=== PATIENT | female | born 1970 | race Caucasian/White ===

== ENCOUNTER 2024-09-02 07:58 | Outpatient (AMB) | payer BC, SELFPAY ==
--- NOTE | 2024-09-02 07:59 | A.OFFPC_ITS ---
Vital Signs 09/02/24 08:06 Height 5 ft 4 in Weight 187 lb 4 oz BMI 32.1 BP 104/78 Blood Pressure Location Lt brachial Position Sitting Pulse 79 Pulse Source Pulse Oximeter Pulse Oximetry (%) 97 Oxygen Delivery Method Room Air Intake Visit Reasons: establish care Intake Note: New patient visit. Requesting ENT referral for hearing loss left ear. Allergies No Known Allergies Allergy (Verified 09/02/24 08:02) Medication List - Last Reconciled 09/02/24 by DEMIAN Burns-MANNIE ascorbate calcium (vitamin C) 1 g PO Q6H cetirizine (Zyrtec) 10 mg PO DAILY PRN clotrimazole-betamethasone 1-0.05 % appl topical ferrous sulfate 325 mg PO DAILY Tobacco use date assessed: 09/02/24 Dental Screening Dental Screen Date: 09/02/24 Did you have a dental visit in the last 12 months?: Yes Did you have a dental problem in the last 6 months where you did not have access to dental care?: No Was dental information given to patient?: Patient has dentist HPI HPI Comments History of Present Illness Details 54 y/o F with seasonal allergies, family history of liver cancer, family history of lung cancer, iron-deficiency anemia, obesity, perimenopause Family hx: Mom lung ca + liver ca - she was a smoker, HTN Social: works at [employer], has children Health Maintenance: Mammo Colon: UTD + polyps repeat in [address] [facility] Pap Dexa Tdap Flu done today Specialist: ENT ELEVATOR BUILDER routine Derm [place] The patient is a 54-year-old female presenting to [facility] care Previous PCP: Archana - no records avail today c/o hearing loss, which she has noticed over the last six years. Initially, the hearing impairment was mild, but more recently, a significant decrease in hearing ability has been identified. The patient underwent audiometric testing at [facility], where it was suggested that further evaluation by an landing worker might be necessary, as the hearing loss might be greater than auditory system alone. She also reports chronic ear symptoms including occasional ear infections, discharge, and itching, previously treated with topical hydrocortisone. Hearing loss effects L ear only; last hearing test done 2023 @ [facility]. Additionally, the patient has a history of iron deficiency anemia and is unsure if this condition is related to her menstrual cycle, which has been irregular as she approaches menopause. Further, there is a notable family history of liver and lung cancer. T The patient is in the perimenopausal stage, having not menstruated since October of the previous year, with noted significant weight gain primarily in the abdominal region, suspected to be related to menopause. Interested in dieticien referral. Physical Exam General: Awake, alert. No apparent distress Eyes: Sclera and conjunctiva clear bilaterally Ears: Tympanic membrane on L show some scarring otherwise intact, Right TM intact and clear; L eac + eczema Cardiovascular: Regular rate and rhythm Respiratory: Clear to auscultation bilaterally Plan - Referral to landing worker in [facility] for further evaluation of hearing loss. - Scheduled labs to assess current statu s of anemia, including complete blood count, iron panel. - Initiate thyroid function tests given weight gain concerns. - Referral to in-house film process operator for dietary evaluation and management to address weight gain. - Continue management of iron deficiency anemia and monitor symptoms. - Encourage patient to maintain follow-u p with OBGYN for management of perimenopausal symptoms. - Reassess after laboratory results for further intervention if needed. Patient was informed and verbally consented to the use of an ambient scribe for clinic note documentation during this visit. Discussion Notes I discussed with the patient the recommendation for a referral to an ENT specialist in [place] to address her significant hearing loss and previous audiometric findings. I also reviewed the benefits of seeking nutritional advice, given her recent weight gain paralleling her perimenopausal state. Further, I addressed her anxiety regarding potential hereditary cancer risks, emphasizing the importance of maintaining regular health screenings. We agreed on the necessity of obtaining updated labs to evaluate her anemia and possible thyroid dysfunction. Follow-up was encouraged to review lab results in detail. Patient Instructions - Schedule and attend an ENT appointment in [place]. - Bring hearing test results to the ENT specialist. - Complete lab work as scheduled, includ ing anemia and thyroid panels. - Follow up with film process operator and consid er lifestyle changes to manage weight. - Continue monitoring blood pressure and discuss any concerns with primary care. - Use patient portal for efficient commu nication and appointment management. - Watch for any new symptoms or signific ant health changes and report as needed. - RTO in a few weeks for a CPE and to re view labs , sooner as needed Total time spent caring for the patient today was 40 minutes. This includes time spent before the visit reviewing the chart, time spent during the visit, and time spent after the visit on documentation, reviewing laboratory results, diagnostic imaging, medications, performing a medically necessary evaluation, counseling on diagnoses, care coordination, ordering appropriate tests, ordering appropriate medications, review of tests performed by other providers, reporting test results with the patient, communication with other healthcare providers. [facility] Medical History (Updated 09/02/24 @ 08:43 by Desirae Solomon [facility]) No pertinent family history Family History (Updated 09/02/24 @ 08:05 by Denise Holt CMA) Mother Anxiety Lung cancer Liver cancer Father Anxiety Other FH: mental illness Social History (Updated 09/02/24 @ 08:05 by Denise Holt CMA) Housing: House Alcohol intake: current Comment: occasional Patient Tobacco Use Status: Never used Tobacco e-Cigarette/Vaping Use: Never Used Second Hand Smoke Exposure: No service: No Current occupational status: employed Current occupation: Teacher Current occupational exposures/hazards: No Cognitive needs: No Hearing needs: Yes (hearing impaired left ear) Vision needs: No Questionnaire PHQ-9 Over the last 2 weeks, how often have you been bothered by any of the following problems? 1. Little interest or pleasure in doing things: not at all 2. Feeling down, depressed, or hopeless: not at all 3. Trouble falling or staying asleep, or sleeping too much: not at all 4. Feeling tired or having little energy: not at all 5. Poor appetite or overeating: not at all 6. Feeling bad about yourself - or that you are a failure or have let yourself or your family down: not at all 7. Trouble concentrating on things, such as reading the newspaper or watching television: not at all 8. Moving or speaking so slowly that other people could have noticed. Or the opposite - being so fidgety or restless that you have been moving around a lot more than usual: not at all 9. Thoughts that you would be better off or of hurting yourself in some way: not at all Total score: 0 Depression Screening Interpretation: Negative Depression Screening Done: Yes 06904 - PHQ-9 Billing: Yes Source: Developed by Drs. Ray Peraza, Vanessa B.Dontae Lake and colleagues, with an educational ehsan from [employer]. Thrive Questionnaire Date Thrive assessed: 09/01/24 I am a: Patient What is your living situation today?: I have a steady place to live Within the past 12 months, did the food you bought not last and you didn't have the money to get more?: Never true Within the past 12 months, did you worry whether your food would run out before you got money to buy more?: Never true Do you have trouble paying for medicines?: No Do you have trouble getting transportation to medical appointments?: No Do you have trouble paying your heating and electricity bill?: No Do you have trouble taking care of your child, family member or friend?: No Do you have trouble with day-to-day activities such as bathing, preparing meals, shopping, managing finances, etc.?: No Are you currently unemployed and looking for a job?: No Are you interested in more education?: Yes Please select the resources that you would like help with: None Currently or been in a relationship where the following occur: No concerns reported THRIVE Score: 0 AUDIT C Alcohol Use Questionnaire (AUDIT-C) 1. How often do you have a drink containing alcohol?: Monthly or less 2. How many drinks containing alcohol do you have on a typical day when you are drinking?: 1 or 2 3. How often do you have six or more drinks on one occasion?: Never Total Score: 1 Score Reviewed/Action Taken: Yes SAPPHIRE-7 AMB Questionnaire SAPPHIRE-7 Date SAPPHIRE - 7 assessed: 09/02/24 Feeling nervous, anxious, or on edge: 1 = Several days Not being able to stop or control worryin = Not at all Worrying too much about different things: 0 = Not at all Trouble relaxin = Not at all Being so restless that it is hard to sit still: 0 = Not at all Becoming easily annoyed or irritable: 1 = Several days Feeling afraid as if something awful might happen: 0 = Not at all Total SAPPHIRE-7 score (0-4 normal; 5-9 mild; 10-14 moderate; 15-21 severe): 2 Source: Developed by Drs. Ray Peraza, Dontae Conway and colleagues, with an educational ehsan from [employer]. SAPPHIRE-7 Assessment Billing SAPPHIRE-7 Assessment Tool: SAPPHIRE-7 Assessment 67931 Physical exam (Primary Care) Vital Signs: Last Vital Signs Pulse 79 09/02/24 08:06 BP 104/78 09/02/24 08:06 Pulse Ox 97 09/02/24 08:06 Oxygen Delivery Method Room Air 09/02/24 08:06 BMI result Body Mass Index 32.1 BMI Assessment/Plan discussion: High BMI High, discussed plan: lifestyle Tobacco/Smoking Status: Tobacco use Status Tobacco use date assessed 09/02/24 09/02/24 08:04 Patient Tobacco Use Status Never used Tobacco 09/02/24 08:05 e-Cigarette/Vaping Use Never Used 09/02/24 08:05 PHQ-9: PHQ-9 Score PHQ-9: Total score 0 09/02/24 09:37 Depression Screening Interpretation: Negative Thrive Assessment: Date of Thrive Assessment Date Thrive assessed 09/01/24 09/02/24 08:04 Currently or been in a relationship where the following occur: No concerns repo rted Office Procedures Flu Questionnaire Does the patient have a severe egg allergy?: No Does the patient have severe life threatening allergies?: No Does the patient have a fever or illness today?: No Has the patient ever had Guillain-Beverly Syndrome?: No Has the patient ever had any past reaction to a flu shot?: No Immunizations Fluarix Triv 0600-5147 (PF) 45 mcg (15 mcg x 3)/0.5 mL IM syringe Performing Provider: EMELIA Burns Performing Location: [facility] Administered by: Denise Holt CMA on 09/02/24 08:59 Dose Route Admin Location Dispensed Lot Number Expiration Date NDC Dolphin Researcher 0.5 mL IM Left Deltoid 0.5 mL [id number] 02/08/25 61153-350-36 [employer] VIS Given Date VIS Provided VIS Publication Date 09/02/24 Single Vaccine 21 Eligibility Eligibility Date Funding Source Not [facility] Eligible 09/02/24 Private Coding Level of Care Code New Pt Level 4 (64367) Complex EM visit Add On G2211 Diagnoses Encounter to establish care Z76.89 BMI 32.0-32.9,adult Z68.32 Class 1 obesity due to excess calories without serious comorbidity with body mas s index (BMI) of 32.0 to 32.9 in adult E66.811; E66.09; Z68.32 Obesity type: due to excess calories Serious obesity comorbidity presence: without serious comorbidity Hearing loss of left ear, unspecified hearing loss type H91.92 Hearing loss type: unspecified Iron deficiency anemia, unspecified iron deficiency anemia type D50.9 Iron deficiency anemia type: unspecified iron deficiency Perimenopause N95.1 Family history of lung cancer Z80.1 Family history of liver cancer Z80.0 Seasonal allergies J30.2 Eczema L30.9 Influenza vaccine administered Z23 Additional Codes SAPPHIRE-7 Assessment Billing - SAPPHIRE-7 Assessment Tool: SAPPHIRE-7 Assessment 71299 ([id number]) PHQ-9 - 64407 - PHQ-9 Billing: Yes ([id number]) Assessment & Plan Assessment & Plan (1) Encounter to establish care: Code(s): Z76.89 - Persons encountering health services in other specified circumstances (2) BMI 32.0-32.9,adult: Code(s): Z68.32 - Body mass index [BMI] 32.0-32.9, adult Category: Medical (3) Class 1 obesity with body mass index (BMI) of 32.0 to 32.9 in adult: Code(s): E66.811 - Obesity, class 1; Z68.32 - Body mass index [BMI] 32.0-32.9, adult Category: Medical Qualifiers: Obesity type: due to excess calories Serious obesity comorbidity presence: without serious comorbidity Qualified Code(s): E66.811 - Obesity, class 1; E66.09 - Other obesity due to excess calories; Z68.32 - Body mass index [BMI] 32.0-32.9, adult (4) Hearing loss, left: Code(s): H91.92 - Unspecified hearing loss, left ear Category: Medical Qualifiers: Hearing loss type: unspecified Qualified Code(s): H91.92 - Unspecified hearing loss, left ear (5) Iron deficiency anemia: Code(s): D50.9 - Iron deficiency anemia, unspecified Category: Medical Qualifiers: Iron deficiency anemia type: unspecified iron deficiency Qualified Code(s): D50.9 - Iron deficiency anemia, unspecified (6) Perimenopause: Comment: last period October 2023 Code(s): N95.1 - Menopausal and female climacteric states Category: Medical (7) Family history of lung cancer: Comment: mom Code(s): Z80.1 - Family history of malignant neoplasm of trachea, bronchus and lung Category: Medical (8) Family history of liver cancer: Comment: mom Code(s): Z80.0 - Family history of malignant neoplasm of digestive organs Category: Medical (9) Seasonal allergies: Code(s): J30.2 - Other seasonal allergic rhinitis Category: Medical (10) Eczema: Code(s): L30.9 - Dermatitis, unspecified Category: Medical (11) Influenza vaccine administered: Code(s): Z23 - Encounter for immunization Plan . Orders: Orders Complete Blood Count no Diff Today D50.9 - Iron deficiency anemia, unspecified, N95.1 - Menopausal and female climacteric states, Z68.32 - Body mass index [BMI] 32.0-32.9, adult IRON PROFILE Today D50.9 - Iron deficiency anemia, unspecified, N95.1 - Menopausal and female climacteric states, Z68.32 - Body mass index [BMI] 32.0- 32.9, adult Comprehensive Met. Panel Today D50.9 - Iron deficiency anemia, unspecified, N95.1 - Menopausal and female climacteric states, Z68.32 - Body mass index [BMI] 32.0-32.9, adult Hemoglobin A1c Today D50.9 - Iron deficiency anemia, unspecified, N95.1 - Menopausal and female climacteric states, Z68.32 - Body mass index [BMI] 32.0- 32.9, adult Vitamin B12 and Folate Today D50.9 - Iron deficiency anemia, unspecified, N95.1 - Menopausal and female climacteric states, Z68.32 - Body mass index [BMI] 32.0-32.9, adult Vitamin D 25-OH Total Today D50.9 - Iron deficiency anemia, unspecified, N95.1 - Menopausal and female climacteric states, Z68.32 - Body mass index [BMI] 32.0- 32.9, adult Influenza [id number] Immunization Today Z23 - Encounter for immunization Lipid Panel Today D50.9 - Iron deficiency anemia, unspecified, N95.1 - Menopausal and female climacteric states, Z68.32 - Body mass index [BMI] 32.0- 32.9, adult TSH reflex Free T4 Today D50.9 - Iron deficiency anemia, unspecified, N95.1 - Menopausal and female climacteric states, Z68.32 - Body mass index [BMI] 32.0- 32.9, adult Microalbumin, Random (w Creat) Today D50.9 - Iron deficiency anemia, unspecified, N95.1 - Menopausal and female climacteric states, Z68.32 - Body mass index [BMI] 32.0-32.9, adult Referrals Ear/Nose/Throat Referral H91.92 - Unspecified hearing loss, left ear Nutrition/Dietitian Referral E66.811 - Obesity, class 1, Z68.32 - Body mass index [BMI] 32.0-32.9, adult Medications: New ferrous sulfate 325 mg PO DAILY 90 tabs 2RF Patient Instructions: Walk-In Care (Urgent Care): We Make it Easy Walk-in for urgent medical issues such as: ? Seasonal Allergies ? Insect Bites ? Cough ? Diarrhea ? Acute Asthma Attacks ? Back, Knee or Joint Pain ? Ear Infection ? Fever without a Rash ? Headaches ? Nausea ? [place] Eye, Rash or Skin Irritation ? Sore Throat ? Sports Physicals ? Vomiting Most insurances are accepted. Patients do not need to be part of the [facility] to seek care at the walk-in clinic. Locations [address] [place] [address] , [place] [address] ? [phone] [facility] Walk-In Care in [place] provides services to ages 18 and over. Open Saturday-Saturday: 8 a.m. to 5 p.m. and Saturday: 9 a.m. to 3 p.m.* *Hours may vary due to staffing availability. To confirm Walk-In Care hours in [place], please call [phone]. [address] [place] [address] ? [phone] [facility] Walk-In Care in [place] provides services to ages 12 and over. Open Saturday-Saturday: 8 a.m. to 5 p.m. Hours may vary due to staffing availability. To confirm Walk-In Care hours in [place], please call [phone]. LABORATORY SERVICES: [facility] Lab ? Primary Location [address] [facility] Saturday through Saturday 6:00 AM ? 5:00 PM Saturday 7:00 AM ? 11:00 AM* [phone] The [facility] Lab is centrally located near the front entrance of the [facility] for easy outpatient access. Convenient parking is provided for outpatients. *Hours may vary due to staffing availability. To confirm Laboratory hours for any location, please call [phone]. Offsite Location For your convenience, we offer offsite laboratory draw stations at the following locations: [address] [place] [address] ? [facility] [address], [address] [place] [address] Saturday through Saturday 7:30 AM ? 1:00 PM* [phone] *Hours may vary due to staffing availability. To confirm Laboratory hours for any location, please call [phone]. [place] ? [address] Saturday through Saturday 6:00 AM ? 3:30 PM* Saturday 6:30 AM ? 3 PM* [phone] *Hours may vary due to staffing availability. To confirm Laboratory hours for any location, please call [phone] [place] [address] Saturday through Saturday 7:30 AM ? 4:00 PM* [phone] *Hours may vary due to staffing availability. To confirm Laboratory hours for any location, please call [phone] [place] [address] Saturday through 9:00 AM ? 4:00 PM* *Hours may vary due to staffing availability. To confirm Laboratory hours for any location, please call [phone]. Appointments are not necessary. Walk-ins are welcome. Like all the departments throughout the [facility], our Lab undergoes frequent reviews to ensure the quality and accuracy of test results, and our staff takes special pride in its status as a nationally accredited facility. Patient Portal: ONE PATIENT. ONE RECORD. BETTER CARE. [facility] has a fully integrated, cutting- edge mobile electronic health information system that has revolutionized the way we care for our patients and manage our organization. This system improves communication and coordination enabling us to provide safe, higher-quality care, and an overall positive experience for staff and patients. Our first priority, as always, is to deliver the highest quality care possible. The system is running in the background supporting that priority. This portal is for all [facility] services and practices. If you are experiencing any technical difficulties with enrolling or logging into the Patient Portal please complete the [facility] Patient Portal Technical Support Form. [facility] now offers a new secure on-line interactive tool for patients to review their health information ? ?Patient Portal. This interactive web portal will enable patients and their families to take an active role in their care by providing easy, secure access to their health information via the internet. The Patient Portal provides patients with instant access to their health information, including laboratory results, medications, allergies, demographic information, visit history, and more. In addition to managing their own care, parents and health care proxies with authorized consent will appreciate the ability to access the records of those individuals for whom they provide care. Please note: if you wish to gain access (Proxy) to another patient?s portal, you will be required to come to the Medical Records Department in person at [facility]. Both the patient giving proxy access and the proxy will need to provide photo identification and complete the appropriate authorization. The Patient Portal also allows track their appointments online. The [facility] Patient Portal also saves patients time by allowing them to submit updates to their demographic and contact information prior to their visits. Portal email notifications will also alert patients to any new activity on their portal, such as test results and new appointments. In order to initially enroll in the [facility] Patient Portal, you will need to enter some required information including the following: * your [facility] Medical Record number * your personal home email address * name * date of Please note: In order to enroll in the [facility] Patient Portal, we need to have your email address on file in your electronic medical record. ?The email address needs to be specific for one person (yourself) in order for your Portal enrollment to be successful. ?You can update your email address in person with our Registration staff when you are registering for a hospital visit. ?Otherwise, you will need to come to the Health Information Management (Medical Records) Department at [facility]. ?We are open from Saturday ? Saturday from 7:30 a.m. ? 4:30 p.m. ?You will be required to present a photo id. Once you have successfully enrolled in the Patient Portal, you will receive a one-time user id and password for the Portal, sent to your email address. ?This will allow you to log into the Patient Portal within 99 hrs and reset your own logon id and password, and define personal security questions. ?Once your permanent login and password have been set, you can log into the [facility] Patient Po rtal at any time via the blue button above or from the Portal Logon button on any page of the [facility] website. [facility] and [facility] encourage all of our patients to enroll in Patient Portal as it presents a valuable opportunity for patients and their families to actively participate in their care and stay healthy Welcome to [facility]. ?We look forward to working with you.
[2024-09-02 08:06] VITALS: BP 104/78; PULSE 79; O2SAT 97; BMI 32.1
== END 2024-09-02 08:37 | disposition home or self-care (01) ==
PROVIDERS: PCP Nurse Practitioner Family; Visit Provider Nurse Practitioner Family
DX: Z76.89 Persons encountering health services in other specified circumstances (principal); Z68.32 Body mass index [BMI] 32.0-32.9, adult; E66.811 Obesity, class 1; E66.09 Other obesity due to excess calories; H91.92 Unspecified hearing loss, left ear; D50.9 Iron deficiency anemia, unspecified; N95.1 Menopausal and female climacteric states; Z80.1 Family history of malignant neoplasm of trachea, bronchus and lung; Z80.0 Family history of malignant neoplasm of digestive organs; J30.2 Other seasonal allergic rhinitis; L30.9 Dermatitis, unspecified; Z23 Encounter for immunization

== ENCOUNTER → 2024-09-02 07:58 | Outpatient (BNVA) | payer BC, SELFPAY | PROVIDERS: PCP Nurse Practitioner Family; Visit Provider Nurse Practitioner Family | DX: Z76.89 Persons encountering health services in other specified circumstances (principal); Z23 Encounter for immunization; E66.811 Obesity, class 1; E66.09 Other obesity due to excess calories; Z68.32 Body mass index [BMI] 32.0-32.9, adult; H91.92 Unspecified hearing loss, left ear; D50.9 Iron deficiency anemia, unspecified; N95.1 Menopausal and female climacteric states; J30.2 Other seasonal allergic rhinitis; L30.9 Dermatitis, unspecified; Z80.0 Family history of malignant neoplasm of digestive organs; Z80.1 Family history of malignant neoplasm of trachea, bronchus and lung | CPT/HCPCS: 90471; 90656; 96127 ==

== ENCOUNTER 2024-09-02 09:19 | Outpatient (REF) | payer BC, SELFPAY ==
[2024-09-02 12:26] LABS: Hematocrit 42.4 % (37.0-47.0); Hemoglobin 14.2 g/dl (12.0-16.0); Mean Corpuscular HGB Conc 33.5 g/dl (31.0-35.0); Mean Corpuscular Hemoglobin 29.6 pg (27.0-33.0); Mean Corpuscular Volume 88.5 fL (80.0-98.0); Mean Platelet Volume 11.1 fL (9.4-12.3); Platelet Count 243 X10*3/uL (160-400); Red Blood Count 4.79 X10*6/uL (4.20-5.50); Red Cell Distribution Width 13.4 % (11.0-16.0); White Blood Count 8.4 X10*3/uL (4.8-10.8)
[2024-09-02 12:36] LABS: Estimated Average Glucose 108 mg/dL; Hemoglobin A1c % 5.4 % (<6.0); Total Hemoglobin (HGBA1C) 3690.6109 umol/L
[2024-09-02 12:41] LABS: Creatinine Urine 76.51 mg/dL; Microalbum/Creatinine Ratio Ur 9.1 ug/mg cr (<30)
[2024-09-02 13:34] LABS: Alanine Aminotransferase 53 U/L (0-31); Albumin Level 4.1 g/dL (3.5-5.0); Alkaline Phosphatase 81 U/L (39-117); Anion Gap 10 (12-20); Aspartate Amino Transferase 31 U/L (5-31); Bilirubin Total 0.3 mg/dL (0.0-1.0); Blood Urea Nitrogen 13 mg/dL (9-16); Calcium 9.8 mg/dL (8.4-10.2); Carbon Dioxide 26 mmol/L (22-29); Chloride 108 mmol/L (96-108); Cholesterol 198 mg/dL (<200); Estimated Glomerular Filt Rate > 60; Glucose Random 85 mg/dL (60-115); HDL Cholesterol 68 mg/dL (>40); Iron 87 mcg/dL (30-160); LDL Cholesterol Calculated 93 mg/dL (<100); Percent Iron Saturation 30 % (15-50); Potassium 4.2 mmol/L (3.3-5.1); Sodium 140 mmol/L (135-145); Total Iron Binding Capacity 293 mcg/dL (228-428); Total Protein 7.2 g/dL (6.5-8.0); Triglycerides 186 mg/dL (<150); Unsaturated Iron Binding 206 ug/dL
[2024-09-02 13:41] LABS: TSH reflex Free T4 1.93 uIU/mL (0.32-4.0); Vitamin D 25-OH Total 24.2 ng/mL (>30)
[2024-09-02 14:53] LABS: Folate 11.9 ng/mL (> or = 4.0); Vitamin B12 322 pg/mL (200-900)
== END 2024-09-02 09:20 | disposition home or self-care (01) ==
LOC: HO.WFDLDS 09:19
PROVIDERS: Visit Provider Nurse Practitioner Family
DX: D50.9 Iron deficiency anemia, unspecified (principal); Z68.32 Body mass index [BMI] 32.0-32.9, adult; N95.1 Menopausal and female climacteric states; Z13.1 Encounter for screening for diabetes mellitus
CPT/HCPCS: 36415; 80053; 80061; 82043; 82306; 82570; 82607; 82746; 83036; 83540; 84443; 85027

== ENCOUNTER 2024-09-08 11:44 | Outpatient (AMB) | payer BC, SELFPAY ==
--- NOTE | 2024-09-08 11:49 | MHC.PC.OV ---
Vital Signs 09/08/24 11:56 Height 5 ft 4 in Weight 182 lb BMI 31.2 BP 112/66 Blood Pressure Location Lt brachial Position Sitting Respiration 12 Pulse 66 Pulse Source Pulse Oximeter Temp 96.8 F Temp Source Oral Pulse Oximetry (%) 98 Oxygen Delivery Method Room Air Intake Visit Reasons: few weeks for CPE Intake Note: annual physical In Shop Service Technician Required: No Allergies No Known Allergies Allergy (Verified 09/08/24 11:49) Tobacco use date assessed: 09/08/24 Dental Screening Dental Screen Date: 09/08/24 Did you have a dental visit in the last 12 months?: Yes Did you have a dental problem in the last 6 months where you did not have access to dental care?: No Was dental information given to patient?: Patient has dentist HPI HPI Comments History of Present Illness Details 54 y/o F with seasonal allergies, family history of liver cancer, family history of lung cancer, iron-deficiency anemia, obesity, perimenopause, Vit d Def, Family hx: Mom lung ca + liver ca - she was a smoker, HTN Social: works at [employer], has children Health Maintenance: Mammo scheduled for one this year Colon: UTD + polyps repeat in 5 years at [facility] 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 Insurance authorization is needed Appt w/ nutrition Sep 2024 Optho eye exam 1 year ago Skin offers no active concerns. Active with Dermatology Labs from 09/02/2024 show normal CBC, normal electrolytes, normal renal function, hemoglobin A1c 5.4%, normal iron profile, elevated ALT of 53, normal AST and alk phos, total cholesterol 198, triglycerides 186, LDL 93, HDL 60 gait, B12 normal but low end of normal at 322, vitamin-D is low 24.2, normal TSH and Folate, normal urine microalbumin creatinine ratio Exam: General: Well developed, well nourished, in no acute distress. Appears stated age. Head: Normocephalic, atraumatic. Eyes: Pupils are equal, round and reactive to light and accommodation. Conjunctivae are clear. Vision grossly normal. Ears: Tympanic membrane on L show some scarring otherwise intact, Right TM intact and clear; L eac + eczema Nose: Patent, without discharge. Mouth: There are no ulcers or lesions noted. No inflammation, no post nasal drip, no plaques nor exudates. Neck: Supple, no adenopathy or thyromegaly. Lungs: Clear to auscultation bilaterally. No rales, rhonchi or wheeze noted. Good air flow in all simms. Heart: Regular rate and rhythm. No murmurs, click, rubs or gallops are noted. Abdomen: Bowel sounds present in all quadrants. The abdomen is soft, nontender, with no masses or organomegaly noted. No hernias are noted. Musculoskeletal: Joints are nontender, without swelling, redness, or effusions. Range of motion is observed to be normal. Pulses: Peripheral pulses are equal and palpable bilaterally. Extremities: No clubbing, cyanosis nor edema is noted. Neurologic: Gait and station normal. Cranial Nerves 2-12 intact. Motor strength grossly symmetrical and intact. No sensory loss. Balance normal. Skin: No rashes, ulcers, or lesions noted. Turgor is good. Skin color is good. Hair and nails are without abnormalities. Psych: Normal eye contact, affect and mood appropriate, and normal interactions. Patient is alert and appropriate to context. Plan Start MVI with Iron and discontinue additional iron and vitamin-C. If you are not able to get this [id number] send me a portal message and I will send in a prescription for a multivitamin and iron. The goal this would be to give you 1 medication that includes the iron for your anemia along with a vitamin-D for her vitamin-D deficiency as well as a B12 as her B12 was on the low end of normal. Follow up with specialist as scheduled. Return to the office in 6 months with repeat labs done 1 week before to evaluate your anemia vitamin-D deficiency and vitamin B12 deficiency. As always return sooner should you need anything This note is constructed using voice recognition software. While every effort has been made to ensure accuracy in j2ee engineer, still errors may have been included Sometimes, these errors may affect the content or meaning of the given sentence . [facility] Medical History (Updated 09/08/24 @ 12:40 by DEMIAN Burns-MANNIE) No pertinent family history Family History (Updated 09/02/24 @ 08:05 by Denise Holt CMA) Mother Anxiety Lung cancer Liver cancer Father Anxiety Other FH: mental illness Social History (Updated 09/02/24 @ 08:05 by Denise Holt CMA) Housing: House Alcohol intake: current Comment: occasional Patient Tobacco Use Status: Never used Tobacco e-Cigarette/Vaping Use: Never Used Second Hand Smoke Exposure: No service: No Current occupational status: employed Current occupation: Teacher Current occupational exposures/hazards: No Cognitive needs: No Hearing needs: Yes (hearing impaired left ear) Vision needs: No Questionnaire PHQ-9 Over the last 2 weeks, how often have you been bothered by any of the following problems? [id number] - PHQ-9 Billing: Patient declined-do not bill Source: Developed by Drs. Ray Peraza, Vanessa Silva, Dontae Joshua and colleagues, with an educational ehsan from [employer]. Thrive Questionnaire Date Thrive assessed: 09/08/24 I am a: Patient What is your living situation today?: I have a steady place to live Within the past 12 months, did the food you bought not last and you didn't have the money to get more?: Never true Within the past 12 months, did you worry whether your food would run out before you got money to buy more?: Never true Do you have trouble paying for medicines?: No Do you have trouble getting transportation to medical appointments?: No Do you have trouble paying your heating and electricity bill?: No Do you have trouble taking care of your child, family member or friend?: No Do you have trouble with day-to-day activities such as bathing, preparing meals, shopping, managing finances, etc.?: No Are you currently unemployed and looking for a job?: No Are you interested in more education?: Yes Please select the resources that you would like help with: None Currently or been in a relationship where the following occur: No concerns reported THRIVE Score: 0 SAPPHIRE-7 AMB Questionnaire SAPPHIRE-7 Date SAPPHIRE - 7 assessed: 09/02/24 Source: Developed by Drs. Ray Peraza, Vanessa Silva, Dontae Joshua and colleagues, with an educational ehsan from [employer]. Physical exam (Primary Care) Vital Signs: Last Vital Signs Temp 96.8 F 09/08/24 11:56 Pulse 66 09/08/24 11:56 Resp 12 09/08/24 11:56 BP 112/66 09/08/24 11:56 Pulse Ox 98 09/08/24 11:56 Oxygen Delivery Method Room Air 09/08/24 11:56 BMI result Body Mass Index 31.2 Tobacco/Smoking Status: Tobacco use Status Tobacco use date assessed 09/08/24 09/08/24 11:51 Patient Tobacco Use Status Never used Tobacco 09/08/24 11:51 e-Cigarette/Vaping Use Never Used 09/08/24 11:51 Thrive Assessment: Date of Thrive Assessment Date Thrive assessed 09/08/24 09/08/24 11:51 Currently or been in a relationship where the following occur: No concerns reported Coding Level of Care Code Est Pt Prev Care 40-64y(94312) Diagnoses Encounter for general adult medical examination without abnormal findings Z00.00 Numerous moles D22.9 Iron deficiency anemia, unspecified iron deficiency anemia type D50.9 Iron deficiency anemia type: unspecified iron deficiency Vitamin D deficiency E55.9 B12 deficiency E53.8 Assessment & Plan Assessment & Plan (1) Encounter for general adult medical examination without abnormal findings: Code(s): Z00.00 - Encounter for general adult medical examination without abnormal findings Category: Medical (2) Numerous moles: Code(s): D22.9 - Melanocytic nevi, unspecified Category: Medical (3) Iron deficiency anemia: Code(s): D50.9 - Iron deficiency anemia, unspecified Category: Medical Qualifiers: Iron deficiency anemia type: unspecified iron deficiency Qualified Code(s): D50.9 - Iron deficiency anemia, unspecified (4) Vitamin D deficiency: Code(s): E55.9 - Vitamin D deficiency, unspecified Category: Medical (5) B12 deficiency: Code(s): E53.8 - Deficiency of other specified B group vitamins Category: Medical Plan . Orders: Orders Complete Blood Count no Diff 6 Months D50.9 - Iron deficiency anemia, unspecified, E53.8 - Deficiency of other specified B group vitamins, E55.9 - Vitamin D deficiency, unspecified IRON PROFILE 6 Months D50.9 - Iron deficiency anemia, unspecified, E53.8 - Deficiency of other specified B group vitamins, E55.9 - Vitamin D deficiency, unspecified Vitamin B12 and Folate 6 Months D50.9 - Iron deficiency anemia, unspecified, E53.8 - Deficiency of other specified B group vitamins, E55.9 - Vitamin D deficiency, unspecified Vitamin D 25-OH Total 6 Months D50.9 - Iron deficiency anemia, unspecified, E53.8 - Deficiency of other specified B group vitamins, E55.9 - Vitamin D deficiency, unspecified Referrals Dermatology Referral D22.9 - Melanocytic nevi, unspecified Patient Instructions: Health screenings for women You should visit your health care provider from time to time, even if you are healthy. The purpose of these visits is to: Screen for medical issues Assess your risk for future medical problems Encourage a healthy lifestyle Update vaccinations and other preventive care services Help you get to know your provider in case of an illness Information Even if you feel fine, you should still see your provider for regular checkups. These visits can help you avoid problems in the future. For example, the only way to find out if you have high blood pressure is to have it checked regularly. High blood sugar and high cholesterol levels also may not have any symptoms in the early stages. A simple blood test can check for these conditions. There are specific times when you should see your provider or receive specific health screenings. The [place] Preventive Services Task Force publishes a list of recommended screenings. Below are screening guidelines for women ages 18 to 39. BLOOD PRESSURE SCREENING Your blood pressure should be checked at least once every 3 to 5 years if: Your blood pressure is in the normal range (top number less than 120 mm Hg and bottom number less than 80 mm Hg) You don't have risk factors for high blood pressure Ask your provider if you need your blood pressure checked more often if: The top number is 120 to 129 mm Hg or the bottom number is 70 to 79 mm Hg You have diabetes, heart disease, kidney problems, are overweight, or have certain other health conditions You have a first-degree relative with high blood pressure You are Black You had high blood pressure during a If the top number is 130 mm Hg or greater or the bottom number is 80 mm Hg or greater, this is considered stage 1 hypertension. Schedule an appointment with your provider to learn how you can reduce your blood pressure. Watch for blood pressure screenings in your area. Ask your provider if you can stop in to have your blood pressure checked. BREAST CANCER SCREENING Experts do not agree about the benefits of breast self-exams in finding breast cancer or saving lives. Talk to your provider about what is best for you. A screening mammogram is not recommended for most women under age 40. Your provider may discuss and recommend mammograms, MRI scans, or ultrasounds if you have an increased risk for breast cancer, such as: A mother or sister who had breast cancer at a young age (most often starting screening earlier than the age the close relative was diagnosed) You carry a high-risk genetic marker CERVICAL CANCER SCREENING Cervical cancer screening should start at age 21 years unless your provider advises otherwise. After the first test: Women ages 21 through 29 should have a Pap test every 3 years. Exoprts do not agree on whether HPV testing is recommended for this age group. Women ages 30 through 65 should be screened with either a Pap test every 3 years or the HPV test every 5 years or both tests every 5 years (called cotesting ). Women who have been treated for precancer (cervical dysplasia) should continue to have Pap tests for 20 years after treatment or until age 65, whichever is longer. If you have had your uterus and cervix removed (total hysterectomy), and you have not been diagnosed with cervical cancer or precancer (high grade cervical neoplasia), you do not need cervical cancer screening. CHOLESTEROL SCREENING Cholesterol screening should begin at: Age 45 for women with no known risk factors for coronary heart disease Age 20 for women with known risk factors for coronary heart disease Repeat cholesterol screening should take place: Every 5 years for women with normal cholesterol levels More often if changes occur in lifestyle (including weight gain and diet) More often if you have diabetes, heart disease, kidney problems, or certain other conditions DIABETES SCREENING You should be screened for diabetes starting at age 35 and then repeated every 3 years if you have no risk factors for diabetes. Screening may need to start earlier and be repeated more often if you have other risk factors for diabetes, such as: You have a first degree relative with diabetes. You are overweight or have obesity. You have high blood pressure, prediabetes, or a history of heart disease. Screening for diabetes should be done if you are planning to become and you are overweight and have other risk factors such as high blood pressure. DENTAL EXAM Go to the dentist once or twice every year for an exam and cleaning. Your dentist will evaluate if you need more frequent visits. EYE EXAM Have an eye exam every 5 to 10 years before age 40. If you have vision problems, have an eye exam every 2 years or more often if recommended by your provider. You should have an eye exam that includes an examination of your retina (back of your eye) at least every year if you have diabetes. IMMUNIZATIONS Commonly needed vaccines include: Flu shot: get one every year. COVID-19 vaccine: ask your provider what is best for you. Tetanus-diphtheria and acellular pertussis (Tdap) vaccine: have one at or after age 19 as one of your tetanus-diphtheria vaccines if you did not receive it as an adolescent. Tetanus-diphtheria: have a booster (or Tdap) every 10 years. Varicella vaccine: receive 2 doses if you never had chickenpox or the varicella vaccine. Hepatitis B vaccine: receive 2, 3, or 4 doses, depending on your exact circumstances. Measles, mumps, and rubella (MMR) vaccine: receive 1 to 2 doses if you are not already immune to MMR. Your provider can tell you if you are immune. Ask your provider about the human papillomavirus (HPV) vaccine if: You have not received the HPV vaccine in the past You have not completed the full vaccine series (you should catch up on this shot) Ask your provider if you should receive other immunizations if you have certain health problems that increase your risk for some diseases such as pneumonia. INFECTIOUS DISEASE SCREENING Women who are sexually active should be screened for chlamydia and gonorrhea up until age 25. Women 25 years and older should be screened for chlamydia and gonorrhea if at high risk. Screening for hepatitis C: All adults ages 18 to 79 should get a one-time test for hepatitis C. people should be screened at every . Screening for human immunodeficiency virus (HIV): All people ages 15 to 65 should get a one-time test for HIV. Depending on your lifestyle and medical history, you may also need to be screened for infections such as syphilis and HIV, as well as other infections. PHYSICAL EXAM All adults should visit their provider from time to time, even if they are healthy. The purpose of these visits is to: Screen for disease Assess your risk of future medical problems Encourage a healthy lifestyle Update your vaccinations and other preventive care services Maintain a relationship with a provider in case of an illness Your height, weight, and BMI should be checked at every exam. During your exam, your provider may ask you about: Depression and anxiety Diet and exercise Alcohol and tobacco use Safety issues, such as using seat belts, smoke detectors, and intimate partner violence Your medicines and risk for interactions SKIN SELF-EXAM Your provider may check your skin for signs of skin cancer, especially if you're at high risk, such as if you: Have had skin cancer before Have close relatives with skin cancer Have a weakened immune system OTHER SCREENING Talk with your provider about colon cancer screening if you have a strong family history of colon cancer or polyps, or if you have had inflammatory bowel disease or polyps yourself. Routine bone density screening of women under 40 is not recommended.
[2024-09-08 11:56] VITALS: BP 112/66; PULSE 66; RESP 12; TEMP 36; O2SAT 98; BMI 31.2
--- OUTSIDE RECORDS SUMMARY | 2024-09-08 12:55 | XMS_ITS | Clinical Summary ---
Author Organization [facility] Address [address] [place] [address] Care Team Providers Care E Commerce Marketing Analyst Name Role Phone Kesha Childress DO Primary Care Provider [phone] Allergies No known active allergies Medications Medication Sig Dispensed Refills Start Date End Date Status ferrous sulfate 325 (65 FE) MG tablet Take by mouth daily. Take 2 hours before or 4 hours after acid reducers. Active Ascorbic Acid (vitamin C) 100 MG tablet Take 100 mg by mouth daily. Active Social History Tobacco Use Types Packs/Day Years Used Date Smoking Tobacco: Never Assessed Sex and Gender Information Value Date Recorded Sex Assigned at Not on file Gender Identity Not on file Sexual Orientation Not on file Last Filed Vital Signs Vital Sign Reading Time Taken Comments Blood Pressure 113/78 12/18/2023 10:46 AM EDT Pulse 62 12/18/2023 10:46 AM EDT Temperature 36.5 ??C (97.7 ??F) 12/18/2023 10:46 AM E DT Respiratory Rate 16 12/18/2023 10:46 AM EDT Oxygen Saturation 99% 12/18/2023 10:46 AM EDT Inhaled Oxygen Concentration - - Weight 79.4 kg (175 lb) 12/18/2023 10:46 AM EDT Height 162.6 cm (5' 4 ) 12/18/2023 10:46 AM EDT Body Mass Index 30.04 12/18/2023 10:46 AM EDT Plan of Treatment Health Maintenance Due Date Last Done Comments Hepatitis C Virus Screening 1971 HIV Screening 1984 DTaP/Tdap/Td Vaccines (1 - Tdap) 1990 Hepatitis B Vaccines (1 of 3 - 19+ 3-dose series) 1990 Pap Smear (Ages 21-65) 1992 Mammogram 2011 Colonoscopy 2016 Pneumococcal Vaccines 50+ (1 of 1 - PCV) 2021 Zoster (Shingles) Vaccine (1 of 2) 2021 Influenza Vaccine 03/12/2024 08/09/2022, , 08/22/2021, Additional history exists COVID-19 Vaccine (2023-2 5 season) 2024 07/01/2021, 11/17/2020, 10/27/2020 Care Teams E Commerce Marketing Analyst Relationship Specialty Start Date End Date Kesha Childress DO [facility] [place] [address] PCP - General Family Medicine 12/13/23
--- OUTSIDE RECORDS SUMMARY | 2024-09-08 12:55 | XMS_ITS | Clinical Summary ---
Author Organization [facility] Address [address] [place] [address] Care Team Providers Care Inspector Air Carrier Name Role Phone Kesha Childress Primary Care Provider [phone] Allergies No known active allergies Medications Medication Sig Dispensed Refills Start Date End Date Status ferrous sulfate 325 (65 FE) MG tablet Take 1 tablet (325 mg total) by mouth every morning with breakfast. 0 Active Ascorbic Acid (vitamin C) 1000 MG tablet Take 1 tablet (1,000 mg total) by mouth daily. 0 Active Cetirizine HCl (ZYRTEC PO) Take by mouth. 0 Active Family History Medical History Relation Name Comments Cancer Maternal Grandmother Anemia Neg Hx Relation Name Status Comments Maternal Grandmother Social History Tobacco Use Types Packs/Day Years Used Date Smoking Tobacco: Never Tobacco Cessation:Counseling Given: Not Answered Alcohol Use Standard Drinks/Week Comments Yes 0 (1 standard drink = 0.6 oz pur e alcohol) Socially Sex and Gender Information Value Date Recorded Sex Assigned at Not on file Gender Identity Not on file Sexual Orientation Not on file Job Start Date Occupation Industry Not on file Not on file Not on file Last Filed Vital Signs Vital Sign Reading Time Taken Comments Blood Pressure 113/33 12/25/2022 1:55 PM EDT Pulse 73 12/25/2022 1:55 PM EDT Temperature 36.7 ??C (98 ??F) 12/25/2022 1:55 PM EDT Respiratory Rate - - Oxygen Saturation 95% 12/25/2022 1:55 PM EDT Inhaled Oxygen Concentration - - Weight 78 kg (172 lb) 12/25/2022 1:55 PM EDT Height 162.8 cm (5' 4.1 ) 12/25/2022 1:55 PM EDT Body Mass Index 29.43 12/25/2022 1:55 PM EDT Plan of Treatment Health Maintenance Due Date Last Done Comments Hepatitis B Vaccines (1 of 3 - 3-dose series) 1971 Hepatitis C Screening 1971 Depression Screening 1983 Preventative Health Evaluation 1989 Cervical Cancer Screening (Pap Smear) 1992 Colon Cancer Screening (Colonoscopy) 2016 Breast Cancer Screening (Mammogram) 2021 Shingrix-Zoster Vaccine (1 of 2) 2021 COVID-19 Vaccine ( season) 2024 07/01/2021, 11/17/2020, 10/27/2020 Influenza Vaccine (#1) 2024 2, 08/09/2022, 08/22/2021, Additional history exists DTap / Tdap / Td (2 - Td or Tdap) 01/26/2029 01/26/2019 Pneumococcal Vaccine Aged Out No long er eligible based on patient's age to complete this topic RSV Ped < 20 months Aged Out No longe r eligible based on patient's age to complete this topic Care Teams Inspector Air Carrier Relationship Specialty Start Date End Date Kesha Childress DO [address] [place] [address] PCP - General Family Medicine 11/16/22
--- OUTSIDE RECORDS SUMMARY | 2024-09-08 12:55 | XMS_ITS ---
Author Name [facility] Organization Unknown Problems Problem Status Onset Date Problem Type Date of Resoluti on Source Laceration of left thumb with infection, subsequent encounter [facility]
== END 2024-09-08 12:43 | disposition home or self-care (01) ==
PROVIDERS: PCP Nurse Practitioner Family; Visit Provider Nurse Practitioner Family
DX: Z00.00 Encounter for general adult medical examination without abnormal findings (principal); D22.9 Melanocytic nevi, unspecified; D50.9 Iron deficiency anemia, unspecified; E55.9 Vitamin D deficiency, unspecified; E53.8 Deficiency of other specified B group vitamins

== ENCOUNTER 2024-10-06 14:27 | Outpatient (AMB) | payer BC, SELFPAY ==
--- NOTE | 2024-10-06 14:33 | A.OFFVIS_ITS ---
VS Expanded 10/06/24 14:35 10/06/24 14:40 Height 5 ft 4 in 5 ft 2 in Weight 181 lb 14.102 oz 182 lb BMI 31.2 33.3 Intake Visit Reasons: Obesity, class 1 Allergies No Known Allergies Allergy (Verified 09/08/24 11:49) Nutrition Presentation Details: Pt presents for MNT for class 1 Obesity Pt reports having gained about 30 lbs in the past years food frequency fruits: 0-1/d ve times/wk fish: 0/wk dairy: 3+ starches> 25serving/d physical activity: ADL etoh/smoking --- BS Monitoring Most Recent Diabetes Results: Microalb/Creat Ratio 9.1 ug/mg cr (<30) 09/02/24 Cholesterol 198 mg/dL (<200) 09/02/24 HDL Cholesterol 68 mg/dL (>40) 09/02/24 Triglycerides 186 mg/dL (<150) H 09/02/24 Creatinine 0.73 mg/dL (0.5-1.4) 09/02/24 Blood Urea Nitrogen 13 mg/dL (9-16) 09/02/24 Sodium 140 mmol/L (135-145) 09/02/24 Potassium 4.2 mmol/L (3.3-5.1) 09/02/24 Chloride 108 mmol/L (96-108) 09/02/24 Carbon Dioxide 26 mmol/L (22-29) 09/02/24 Calcium 9.8 mg/dL (8.4-10.2) 09/02/24 AST 31 U/L (5-31) 09/02/24 ALT 53 U/L (0-31) H 09/02/24 Total Protein 7.2 g/dL (6.5-8.0) 09/02/24 Albumin 4.1 g/dL (3.5-5.0) 09/02/24 ABS-Hybhxug-Zf.Jeor Equation Height: 5 ft 2 in Weight: 182 lb Resting Metabolic Rate: 1387.20 Calculated Activity Level: Sedentary Calories Needed to Maintain Weight: 1664.64 Diagnosis Nutrition problem #1: overweight/obesity As related to (etiology) #1: diagnosis As evidenced by (sign/symptom) #1: knowledge deficit of diet [facility] Medical History (Updated 09/08/24 @ 12:40 by Desirae Solomon [facility]) No pertinent family history Family History (Updated 09/02/24 @ 08:05 by Denise Holt CMA) Mother Anxiety Lung cancer Liver cancer Father Anxiety Other FH: mental illness Social History (Updated 09/02/24 @ 08:05 by Denise Holt CMA) Housing: House Alcohol intake: current Comment: occasional Patient Tobacco Use Status: Never used Tobacco e-Cigarette/Vaping Use: Never Used Second Hand Smoke Exposure: No service: No Current occupational status: employed Current occupation: Teacher Current occupational exposures/hazards: No Cognitive needs: No Hearing needs: Yes (hearing impaired left ear) Vision needs: No Assessment & Plan Assessment & Plan (1) Class 1 obesity with body mass index (BMI) of 32.0 to 32.9 in adult: Code(s): E66.811 - Obesity, class 1; Z68.32 - Body mass index [BMI] 32.0-32.9, adult Category: Medical Qualifiers: Obesity type: due to excess calories Serious obesity comorbidity presence: without serious comorbidity Qualified Code(s): E66.811 - Obesity, class 1; E66.09 - Other obesity due to excess calories; Z68.32 - Body mass index [BMI] 32.0-32.9, adult Plan: Wt: 83 Kg ( 11/03 ) Est kcal needs as per MSJ: 1600 (40% carb, 30% protein/fat) Est fluid needs as per 25-30 ml/d: 2500 Est prot per day as per 1-1.2 g/kg bw: 80 -96 Recommend fiber intake : 8-10 g per day and gradually increase to 25-28 g per day for women and 35-38 g for men or as tolerated Recommend sodium intake per day : less than 2000 mg Educated patient on: ( R = reviewed V = verbalizes understanding N/R = needs review N/A = not applicable * Food sources of carbohydrate, adequate serving sizes and its role in various health conditions: R V N/R * Differences between complex carbohydrates a simple carbohydrates, role of fiber in diet: R V N/R * Lean protein sources of foods: R V NR * Differences between types of fats and role in diet (mono on saturated fat fatty acids, saturated fatty acids, trans fats): R V N/R * Food sources of sodium in salt and healthy modifications for heart health in kidney health: R V R/V * Vitamins and minerals: R V N/R * Healthy plate method concept: R * Physical activity: Benefits a precaution: R V N/R * Hypoglycemia protocol (rule of 15): R V N/R * Dietary prevention of Hyperglycemia: R V R/V Patient Instructions: Follow healthy plate method at dinner including 3 oz of lean protein Have a meal replacement at breakfast consisting of 30 g of protein Choose snacks with 8-12 g of protein ( yogurt, 1/2 cup cottage cheese and fruit, 1/[address] of pastries as examples keep hydrated by having water with meals /snacks Coding Level of Care Code Nutr Indiv Intake (81196) Diagnoses Class 1 obesity due to excess calories without serious comorbidity with body mass index (BMI) of 32.0 to 32.9 in adult E66.811; E66.09; Z68.32 Obesity type: due to excess calories Serious obesity comorbidity presence: without serious comorbidity Time Spent (min) 30
[2024-10-06 14:35] VITALS: BMI 31.2
--- OUTSIDE RECORDS SUMMARY | 2024-10-06 18:10 | XMS_ITS | Clinical Summary ---
Author Organization [facility] Address [address] [place] [address] Care Team Providers Care Webfed Offset Press Operator Name Role Phone Kesha Childress Primary Care Provider Allergies No known active allergies Medications Medication [...] age to complete this topic Care Teams Webfed Offset Press Operator Relationship Specialty Start Date End Date Kesha Childress DO [address] [place] [address] PCP - General Family Medicine 11/16/22
--- OUTSIDE RECORDS SUMMARY | 2024-10-06 18:10 | XMS_ITS | Encounter Summary ---
Author Organization [facility] Address [address] [place] [address] Care Team Providers Care Social Services Coordinator Name Role Phone Unavailable Primary Care Provider Unavailabl e Encounter Details Date Type Department Care Team (Late st Contact Info) Description 09/21/2024 Scanned Document [facility] [address] [place] [phone] Bruna Estrada Au.D [address] [place] [address] Social History Tobacco Use Types Packs/Day Years Used Date Smoking Tobacco: Never Passive Smoke Exposure: Never Smokeless Tobacco: Never Alcohol Use Standard Drinks/Week Comments Never 0 (1 standard drink = 0.6 oz pur e alcohol) Sex and Gender Information Value Date Recorded Sex Assigned at Female 09/16/2024 6:29 PM EST Gender Identity Female 09/16/2024 6:29 PM EST Sexual Orientation Not on file documented as of this encounter Plan of Treatment Not on file documented as of this encounter Visit Diagnoses Not on filedocumented in this encounter
--- OUTSIDE RECORDS SUMMARY | 2024-10-06 18:10 | XMS_ITS | Encounter Summary ---
Author Organization [facility] Address [address] [place] [address] Care Team Providers Care Material Chaser Name Role Phone Unavailable Primary Care Provider Unavailabl e Encounter Details Date Type Department Care Team (Late st Contact Info) Description 09/21/2024 Scanned Document [facility] [address] [place] [phone] Bruna Estrada Au.D [address] [place] [id number] Social History Tobacco Use Types Packs/Day Years [...]
--- OUTSIDE RECORDS SUMMARY | 2024-10-06 18:10 | XMS_ITS | Clinical Summary ---
Author Organization [facility] Address [address] [place] [address] Care Team Providers Care High School Business Teacher Name Role Phone Unavailable Primary Care Provider Unavailabl e Allergies No known active allergies Medications Medication Sig Dispensed Refills Start Date End Date Status ferrous sulfate 325 (65 FE) MG tablet Take by mouth daily. Take 2 hours before or 4 hours after acid reducers. Active Ascorbic Acid (vitamin C) 100 MG tablet Take 100 mg by mouth daily. Active Fluocinolone Acetonide 0.01 % OilIndications:Eczem a of both external ears Administer 4 drops into both ears 2 times a day. Instill into affected ear as instructed for 3 days when symptoms of itching occur 1 each 1 09/25/2024 Active Active Problems Problem Noted Date Diagnosed Date Migraine, menstrual 09/17/2024 Deafness in left ear 01/26/2019 Encounters Date Type Department Care Team Description 09/21/2024 1:30 PM EST Clinical Support [facility] [address] [phone] Fredrick Roberts MD Czaplicki, Allison, Au.D Mixed conductive and sensorineural hearing loss of left ear with restricted hearing of right ear (Primary Dx); Sensorineural hearing loss (SNHL) of right ear with restricted hearing of left ear; Eczema of both external ears 09/21/2024 Scanned Document [facility] [address] [phone] Bruna Estrada Au.D 09/21/2024 Scanned Document [facility] [address] [place] [phone] Bruna Estrada Au.D 09/13/2024 Transcribe Orders [facility] Desirae Solomon APRN Hearing loss of left ear, unspecified hearing loss type (Primary Dx) from Last 3 Months Immunizations Name Administration Dates Next Due Covid-19 MRNA Vaccine - Pfizer 12+ (Purple Cap) 07/01/2021 Influenza Inactivated/Split Preservative Free IM 08/09/2022,06/04/2013 Influenza, Quadrivalent (FLU CELVAX) MDCK, Preservative Free IM 08/09/2022,08/22/2021 Influenza, Trivalent (FLUARI X, AFLURIA, FLULAVAL, FLUZONE) Preservative Free IM 06/04/2013 Tdap 01/26/2019,06/13/2011 Social History Tobacco Use Types Packs/Day Years Used Date Smoking Tobacco: Never Passive Smoke Exposure: Never Smokeless Tobacco: Never Alcohol Use Standard Drinks/Week Comments Never 0 (1 standard drink = 0.6 oz pur e alcohol) Sex and Gender Information Value Date Recorded Sex Assigned at Female 09/16/2024 6:29 PM EST Gender Identity Female 09/16/2024 6:29 PM EST Sexual Orientation Not on file Last Filed Vital Signs Vital Sign Reading Time Taken Comments Blood Pressure 113/78 12/18/2023 10:46 AM EDT Pulse 62 12/18/2023 10:46 AM EDT Temperature 36.5 ??C (97.7 ??F) 12/18/2023 10:46 AM E DT Respiratory Rate 16 12/18/2023 10:46 AM EDT Oxygen Saturation 99% 12/18/2023 10:46 AM EDT Inhaled Oxygen Concentration - - Weight 81.6 kg (180 lb) 09/21/2024 1:59 PM EST Height 162.6 cm (5' 4 ) 09/21/2024 1:59 PM EST Body Mass Index 30.9 09/21/2024 1:59 PM EST Plan of Treatment Health Maintenance Due Date Last Done Comments Hepatitis C Virus Screening 1971 HIV Screening 1984 Hepatitis B Vaccines (1 of 3 - 19+ 3-dose series) 1990 Pap Smear (Ages 21-65) 1992 Mammogram 2011 Colonoscopy 2016 Pneumococcal Vaccines 50+ (1 of 1 - PCV) 2021 Zoster (Shingles) Vaccine (1 of 2) 2021 Influenza Vaccine 03/12/2024 08/09/2022, , 08/22/2021, Additional history exists COVID-19 Vaccine (4 - 2023-2 5 season) 2024 07/01/2021, 11/17/2020, 10/27/2020 DTaP/Tdap/Td Vaccines (3 - T d or Tdap) 01/26/2029 01/26/2019, 06/13/2011 Procedures Procedure Name Priority Date/Time Associated Diagnosis Comments AUDIOMETRY Routine 09/21/2024 1:30 PM EST Sensorineural hearing loss (SNHL) of right ear with restricted hearing of left ear Mixed conductive and sensorineural hearing loss of left ear with restricted hearing of right ear AUDIOMETRY Routine 09/21/2024 1:30 PM EST Sensorineural hearing loss (SNHL) of right ear with restricted hearing of left ear Mixed conductive and sensorineural hearing loss of left ear with restricted hearing of right ear from Last 3 Months Results * Audiometry (09/21/2024 1:30 PM EST) Narrative Bruna Estrada Au.D - 09/21/2024 1:30 PM EST Jose Alberto Mckeon ? 09/21/2024 ??2:03 PM Fredrick Roberts MD AUDIOLOGY SERVICES O RDERABLES from Last 3 Mon[place] [phone]
--- OUTSIDE RECORDS SUMMARY | 2024-10-06 18:10 | XMS_ITS | Encounter Summary ---
Author Organization [facility] Address [address] [place] [address] Care Team Providers Care Solar Engineer Name Role Phone Unavailable Primary Care Provider Unavailabl e Reason for Referral * ENT (Routine) - Closed Specialty Diagnoses / Procedures Referred By Cheryl t Referred To Contact Otolaryngology Diagnoses Hearing loss of left ear, unspecified hearing loss type Desirae Solomon APRN [address] [place] [address] [phone] Referral ID Status Reason Start Date Expiration Date V isits Requested Visits Authorized [id number] Closed Consult 09/13/2024 09/14/2025 1 1 Encounter Details Date Type Department Care Team (Latest Contact Info) Description 09/13/[address] [facility] Desirae Solomon APRN [address] [place] [address] Hearing loss of left ear, unspecified hearing loss type (Primary Dx) Social History Tobacco Use Types Packs/Day Years Used Date Smoking Tobacco: Never Assessed Sex and Gender Information Value Date Recorded Sex Assigned at Female 09/16/2024 6:29 PM EST Gender Identity Female 09/16/2024 6:29 PM EST Sexual Orientation Not on file documented as of this encounter Plan of Treatment Scheduled Referrals Name Type Priority Associated Diagnoses Orde r Schedule Ambulatory referral to ENT Outpatient Referral Routine Hearing loss of left ear, unspecified hearing loss type Ordered: 09/13/2024 documented as of this encounter Visit Diagnoses Diagnosis Hearing loss of left ear, unspecified hearing loss type- Primary documented in this encounter
--- OUTSIDE RECORDS SUMMARY | 2024-10-06 18:10 | XMS_ITS | Encounter Summary ---
Author Organization [facility] Address [address] [place] [address] Care Team Providers Care Plater Printed Circuit Board Panels Name Role Phone Unavailable Primary Care Provider Unavailabl e Reason for Referral * Diagnostic Imaging (Routine) - Pending Review Specialty Diagnoses / Procedures Referred By Cheryl castellon Referred To Contact Diagnoses Sensorineural hearing loss (SNHL) of right ear with restricted hearing of left ear Mixed conductive and sensorineural hearing loss of left ear with restricted hearing of right ear Procedures CT Mastoid w/o contrast Fredrick Roberts MD [address] [place] [address] [place] Referral ID Status Reason Start Date Expiration Date V isits Requested Visits Authorized [id number] Pending Review 09/21/2024 09/22/2025 1 1 Reason for Visit * Reason Comments Hearing Loss * ENT (Routine) - Closed Specialty Diagnoses / Procedures Referred By Contnuria t Referred To Contact Otolaryngology Diagnoses Hearing loss of left ear, unspecified hearing loss type Desirae Solomon, PEDIATRIC DENTAL HYGIENIST [address] [place] [address] [address] [place] [address] Referral ID Status Reason Start Date Expiration Date V isits Requested Visits Authorized [id number] Closed Consult 09/13/2024 09/14/2025 1 1 Encounter Details Date Type Department Care Team (Latest Contact Info) Description 09/21/2024 1:30 PM EST Clinical Support [facility] [place] [address] [place] [address] Fredrick Roberts MD [address] [place] [phone] Bruna Estrada Au.D [address] [place], [place] [phone] Mixed conductive and sensorineural hearing loss of left ear with restricted hearing of right ear (Primary Dx); Sensorineural hearing loss (SNHL) of right ear with restricted hearing of left ear; Eczema of both external ears Social History Tobacco Use Types Packs/Day Years [...] on file documented as of this encounter Last Filed Vital Signs Vital Sign Reading Time Taken Comments Blood Pressure - - Pulse - - Temperature - - Respiratory Rate - - Oxygen Saturation - - Inhaled Oxygen Concentration - - Weight 81.6 kg (180 lb) 09/21/2024 1:59 PM EST Height 162.6 cm (5' 4 ) 09/21/2024 1:59 PM EST Body Mass Index 30.9 09/21/2024 1:59 PM EST documented in this encounter Progress Notes * Fredrick Roberts MD - 09/21/2024 1:30 PM EST Images from the original note were not included. [address] [place] [phone] Loc: [phone] Encounter Date: 09/21/2024 Chief Complaint Patient presents with Hearing Loss 1. Mixed conductive and sensorineural hearing loss of left ear with restricted hearing of right ear - Audiometry - CT Mastoid w/o contrast; Future - CT Mastoid w/o contrast 2. Sensorineural hearing loss (SNHL) of right ear with restricted hearing of left ear - Audiometry - CT Mastoid w/o contrast; Future - CT Mastoid w/o contrast 3. Eczema of both external ears - Fluocinolone Acetonide 0.01 % Oil; Administer 4 drops into both ears 2 times a day. Instill into affected ear as instructed for 3 days when symptoms of itching occur Dispense: 1 each; Refill: 1 ASSESSMENT AND PLAN Ann Godfrey presents with iuuuqars-co-uiezsp mixed hearing loss in the left ear, with normal hearing in the right ear except for mild sensorineural hearing loss at higher frequencies. Her symptomsinclude oral fullness and occasional drainage in the left ear, which have been previously managed with steroid drops. There is no clear etiology for the conductive component of her hearing loss, and no imaging has been performed to date. The patient is interested in pursuing a hearing aid due to the impact on her quality of life. - Order a CT scan to evaluate for possible otosclerosis, bony erosion, or cholesteatoma - Discuss potential surgical options depending on CT scan results - Will prescribe fluocinolone drops to use if eczema-like symptoms recur - Schedule a hearing aid evaluation with an equipment detailer if CT scan results are unremarkabley - Follow up with patient within five to seven days [address] scan results are available HISTORY OF PRESENT ILLNESS Ann Godfrey is a 54-year-old female with a history of known hearing loss in the left ear, first identified in 2016. She reports symptoms of oral fullness and occasional drainage in the left ear. She notes a history of ear infections as an adult and eczema-like symptoms in the left ear, which have been treated with steroid drops in the past. She expresses interest in obtaining a hearing aid dueto the impact on her job and daily life. No significant concerns are noted regarding the right ear. PHYSICAL EXAM The patient was in no acute distress and breathing comfortably on exam. Examination of the ears, nose, oral cavity, oropharynx, and neck was completed and found to be within normal limits with the following notable exceptions and findings highlighted here: - Normal hearing in the right ear with mild sensorineural hearing loss between 3,000 and 4,000 hertz - Usbpmmvp-as-pgcnzt mixed hearing loss in the left ear - Tympanograms are Type A normal - No visible inflammation or fluid behind the ear - Normal mechanical pressure test of the eardrum - Tuning fork test louder on the left side DIAGNOSTIC TESTING REVIEWED An audiogram performed today shows normal hearing in the right ear dipping to a mild sensorineural hearing loss between 3,000 and 4,000 hertz. The left ear demonstrates a ertfehta-iu-ajfmjx mixed hearing loss. Tympanograms are Type A normal. A CT scan has been ordered to further evaluate the conductive component of the left ear hearing loss. PAST MEDICAL HISTORY History reviewed. No pertinent past medical history. History reviewed. No pertinent surgical history. History reviewed. No pertinent family history. Social History Tobacco Use Smoking status: Never Passive exposure: Never Smokeless tobacco: Never Substance Use Topics Alcohol use: Never Drug use: Never MEDICATIONS Current Outpatient Medications: Ascorbic Acid (vitamin C) 100 MG tablet, Take 100 mg by mouth daily., Disp: , Rfl: ferrous sulfate 325 (65 FE) MG tablet, Take by mouth daily. Take 2 hours before or 4 hours after acid reducers., Disp: , Rfl: Fluocinolone Acetonide 0.01 % Oil, Administer 4 drops into both ears 2 times a day. Instill into affected ear as instructed for 3 days when symptoms of itching occur, Disp: 1 each, Rfl: 1 ALLERGIES No Known Allergies VISIT ORDERS 1. Mixed conductive and sensorineural hearing loss of left ear with restricted hearing of right ear - Audiometry - CT Mastoid w/o contrast; Future - CT Mastoid w/o contrast 2. Sensorineural hearing loss (SNHL) of right ear with restricted hearing of left ear - Audiometry - CT Mastoid w/o contrast; Future - CT Mastoid w/o contrast 3. Eczema of both external ears - Fluocinolone Acetonide 0.01 % Oil; Administer 4 drops into both ears 2 times a day. Instill into affected ear as instructed for 3 days when symptoms of itching occur Dispense: 1 each; Refill: 1 Fredrick Roberts MD documented in this encounter Procedure Notes * Jose Alberto Mckeon - 09/21/2024 1:30 PM ESTAssociated Order(s): AUDIOMETRY Pre-Procedure Diagnose(s): Sensorineural hearing loss (SNHL) of right ear with restricted hearing of left ear; Mixed conductive and sensorineural hearing loss of left ear with restricted hearing of right ear Images from the original note were not included. documented in this encounter Plan of Treatment Scheduled Orders Name Type Priority Associated Diagnoses Orde r Schedule CT Mastoid w/o contrast Imaging Routine Sensorineural hearing loss (SNHL) of right ear with restricted hearing of left ear Mixed conductive and sensorineural hearing loss of left ear with restricted hearing of right ear Expected: 09/21/2024, Expires: 09/21/2025 documented as of this encounter Procedures Procedure Name Priority Date/Time Associated Diagnosis [...] ear with restricted hearing of right ear documented in this encounter Results * Audiometry (09/21/2024 1:30 PM EST) Narrative Bruna Estrada Au.D - 09/21/2024 1:30 PM EST Jose Alberto Mckeon ? 09/21/2024 ??2:03 PM Fredrick Roberts MD AUDIOLOGY SERVICES O RDERABLES documented in this encounter Visit Diagnoses Diagnosis Mixed conductive and sensorineural hearing loss of left ear with restricted hearing of right ear- Primary Sensorineural hearing loss (SNHL) of right ear with restricted hearing of left ear Eczema of both external ears documented in this encounter
[2024-10-15 09:17] VITALS: BMI 33.3
== END 2024-10-06 15:20 | disposition home or self-care (01) ==
PROVIDERS: PCP Nurse Practitioner Family; Visit Provider Dietitian, Registered
DX: E66.811 Obesity, class 1 (principal); E66.09 Other obesity due to excess calories; Z68.32 Body mass index [BMI] 32.0-32.9, adult

== ENCOUNTER → 2024-10-06 14:27 | Outpatient (BNVA) | payer BC, SELFPAY | PROVIDERS: PCP Nurse Practitioner Family; Visit Provider Dietitian, Registered | DX: E66.811 Obesity, class 1 (principal); Z68.32 Body mass index [BMI] 32.0-32.9, adult; Z71.3 Dietary counseling and surveillance | CPT/HCPCS: 97802 ==

== ENCOUNTER 2024-11-16 10:17 | Outpatient (AMB) | payer BC, SELFPAY ==
--- NOTE | 2024-11-16 10:21 | MHC.PC.OV ---
Vital Signs 11/16/24 10:29 BP 114/78 Blood Pressure Location Rt brachial Position Sitting Respiration 12 Pulse 59 Pulse Source Pulse Oximeter Temp 97.8 F Temp Source Oral Pulse Oximetry (%) 98 Oxygen Delivery Method Room Air Intake Visit Reasons: Throat infection Intake Note: Throat infection. Symptoms started 10/31/24. Possible had a scratch in the back of the throat that got infected. Went to Urgent Care last Saturday12/08/2024. Was given a Ricardo and ended on Saturday. [employer] Founder Required: No Allergies No Known Allergies Allergy (Verified 11/18/24 09:30) Tobacco use date assessed: 11/16/24 Dental Screening Dental Screen Date: 09/08/24 HPI HPI Comments History of Present Illness Details 54 y/o F with seasonal allergies, family history of liver cancer, family history of lung cancer, iron-deficiency anemia, obesity, perimenopause, Vit d Def, On the 31 of October was at a lacrosse event, felt like she swallowed something/started to have discomfort & fullness in the left throat associated with a bad smell intermittently from the mouth, sometimes metallic in taste. Shw was not actually eating or drinking at the time. Is able to tolerate liquids and solids. She is having CT ?sinus today for persistent left ear pain through E[facility] [place]. Denies fevers, chills ROS see HPI PHYSICAL EXAM: GENERAL: Alert and oriented x 3. NAD EYES: EOMI. Anicteric. HENT: Moist mucous membranes. Erythema with mild hypertrophy of the left tonsil. Tender left cervical nodes LUNGS: Clear to auscultation bilaterally. CARDIOVASCULAR: Regular rate and rhythm. No murmur. No JVD. ABDOMEN: Soft, non-tender +bs EXTREMITIES: No edema. Non-tender. SKIN: No rashes or lesions. Warm. NEUROLOGIC: No focal neurological deficits. CN II-XII grossly intact PSYCHIATRIC: Cooperative. Appropriate mood and affect [facility] Medical History No pertinent family history Family History Mother Anxiety Lung cancer Liver cancer Father Anxiety Other FH: mental illness Social History Housing: House Alcohol intake: current Comment: occasional Patient Tobacco Use Status: Never used Tobacco e-Cigarette/Vaping Use: Never Used Second Hand Smoke Exposure: No service: No Current occupational status: employed Current occupation: Teacher Current occupational exposures/hazards: No Cognitive needs: No Hearing needs: Yes (hearing impaired left ear) Vision needs: No Questionnaire Thrive Questionnaire Date Thrive assessed: 09/01/24 I am a: Patient What is your living situation today?: I have a steady place to live Within the past 12 months, did the food you bought not last and you didn't have the money to get more?: Never true Within the past 12 months, did you worry whether your food would run out before you got money to buy more?: Never true Do you have trouble paying for medicines?: No Do you have trouble getting transportation to medical appointments?: No Do you have trouble paying your heating and electricity bill?: No Do you have trouble taking care of your child, family member or friend?: No Do you have trouble with day-to-day activities such as bathing, preparing meals, shopping, managing finances, etc.?: No Are you currently unemployed and looking for a job?: No Are you interested in more education?: Yes Please select the resources that you would like help with: None Currently or been in a relationship where the following occur: No concerns reported THRIVE Score: 0 SAPPHIRE-7 AMB Questionnaire SAPPHIRE-7 Date SAPPHIRE - 7 assessed: 09/02/24 Source: Developed by Drs. Ray Peraza, Vanessa Silva, Dotnae Joshua and colleagues, with an educational ehsan from [employer]. Physical exam (Primary Care) Vital Signs: Last Vital Signs Temp 97.8 F 11/16/24 10:29 Pulse 59 11/16/24 10:29 Resp 12 11/16/24 10:29 BP 114/78 11/16/24 10:29 Pulse Ox 98 11/16/24 10:29 Oxygen Delivery Method Room Air 11/16/24 10:29 Tobacco/Smoking Status: Tobacco use Status Tobacco use date assessed 11/16/24 11/16/24 10:28 Patient Tobacco Use Status Never used Tobacco 11/16/24 10:23 e-Cigarette/Vaping Use Never Used 11/16/24 10:23 Thrive Assessment: Date of Thrive Assessment Date Thrive assessed 09/01/24 11/16/24 10:23 Currently or been in a relationship where the following occur: No concerns reported Coding Level of Care Code Est Pt Level 4 (88450) Diagnoses Neck pain on left side M54.2 Assessment & Plan Assessment & Plan (1) Neck pain on left side: Code(s): M54.2 - Cervicalgia Category: Medical Plan: Will treat with antibiotics for possible abscess/infection Discussed imaging-likely this area will be somewhat visualized on upcoming CT today. Asked her to get us results Referral to ENT for this particular problem at [facility] [place] where she is being evaluated for the left ear Medications: New levofloxacin 750 mg PO DAILY 7 tabs 0RF prednisone 40 mg (2 x 20 mg) PO DAILY 6 tabs 0RF 3 days fluconazole 150 mg PO Q3D PRN 2 tabs 0RF yeast infection 2 doses
[2024-11-16 10:29] VITALS: BP 114/78; PULSE 59; RESP 12; TEMP 36.6; O2SAT 98
--- OUTSIDE RECORDS SUMMARY | 2024-11-16 12:03 | XMS_ITS | Clinical Summary ---
Author Organization [facility] Address [address] [place] [address] Care Team Providers Care Personal Coach Name Role Phone Pcp, No Primary Care Provider Unavailabl e Allergies No known active allergies Medications Medication Sig Dispensed Refills Start Date End Date Status ferrous sulfate 325 (65 FE) MG tablet Take by mouth daily. Take 2 hours before or 4 hours after acid reducers. Active Ascorbic Acid (vitamin C) 100 MG tablet Take 100 mg by mouth daily. Active Fluocinolone Acetonide 0.01 % OilIndications:Ec zema of both external ears Administer 4 drops into both ears 2 times a day. Instill into affected ear as instructed for 3 days when symptoms of itching occur 1 each 1 09/25/2024 11/07/2024 Discontinued (Therapy completed) azithromycin (ZITHROMAX) 250 MG tabletIndications :Acute tonsillitis, unspecified etiology Take 2 tablets by mouth on day 1 followed by 1 tablet by mouth daily on days 2 through 5. 6 tablet 11/07/2024 11/12/2024 Active Problems Problem Noted Date Diagnosed Date Migraine, menstrual 09/17/2024 Deafness in left ear 01/26/2019 Encounters Date Type Department Care Team Description 11/07/2024 2:00 PM EDT Office Visit [facility] [address] [phone] Ashish Galan MD Devitt, Anna C, APRN Neck pain on left side (Primary Dx); Acute tonsillitis, unspecified etiology; Cervical strain, acute, initial encounter 11/07/2024 Scanned Document [address] [place] [phone] Provider, Generic 11/07/2024 Scanned Document [facility] [address] [facility] [address] [place] [phone] Provider, Generic 11/07/2024 Travel 09/21/2024 1:30 PM EST Clinical Support [facility] [address] [place] [phone] Fredrick Roberts MD Czaplicki, Allison, Au.D Mixed conductive and sensorineural hearing loss of left ear with restricted hearing of right ear (Primary Dx); Sensorineural hearing loss (SNHL) of right ear with restricted hearing of left ear; Eczema of both external ears 09/21/2024 Scanned Document [facility] [address] [facility] [place] [phone] Bruna Estrada Au.D 09/21/2024 Scanned Document [facility] [address] [place] [phone] Bruna Estrada Au.D 09/13/2024 Transcribe Orders [facility] Desirae Solomon [...] Sign Reading Time Taken Comments Blood Pressure 119/76 11/07/2024 2:05 PM EDT Pulse 71 11/07/2024 2:05 PM EDT Temperature 36.9 ??C (98.5 ??F) 11/07/2024 2:05 PM ED T Respiratory Rate 18 11/07/2024 2:05 PM EDT Oxygen Saturation 95% 11/07/2024 2:05 PM EDT Inhaled Oxygen Concentration - - Weight 81.6 kg (180 lb) 11/07/2024 2:05 PM EDT Height 162.6 cm (5' 4 ) 11/07/2024 2:05 PM EDT Body Mass Index 30.9 11/07/2024 2:05 PM EDT Plan of Treatment Health Maintenance [...] , 08/22/2021, Additional history exists COVID-19 Vaccine ( - 2023-2 5 season) 2024 07/01/2021, 11/17/2020, [...] SERVICES O RDERABLES from Last 3 Months Care Teams Personal Coach Relationship Specialty Start Date End Date Pcp, No PCP - General General Medicine 11/07/24
--- OUTSIDE RECORDS SUMMARY | 2024-11-16 12:03 | XMS_ITS | Encounter Summary ---
Author Organization [facility] Address [address] [place] [address] Care Team Providers Care Aircraft Refueler Name Role Phone Pcp, No Primary Care Provider Unavailabl e Encounter Details Date Type Department Care Team (Late st Contact Info) Description 11/07/2024 Scanned Document [address] [phone] Provider, Generic Social History Tobacco Use Types Packs/Day Years [...] Diagnoses Not on filedocumented in this encounter Care Teams Aircraft Refueler Relationship Specialty Start Date End Date Pcp, No PCP - General General Medicine 11/07/24 documented as of this encounter
--- OUTSIDE RECORDS SUMMARY | 2024-11-16 12:03 | XMS_ITS | Encounter Summary ---
Author Organization [facility] Address [address] [place] [address] Care Team Providers Care Loan Closer Name Role Phone Pcp, No Primary Care Provider Unavailabl e Encounter Details Date Type Department Care Team (Late st Contact Info) Description 11/07/2024 Scanned Document [address] [phone] Provider, Generic Social History Tobacco Use Types [...] on filedocumented in this encounter Care Teams Loan Closer Relationship Specialty Start Date End Date Pcp, No PCP - General General Medicine 11/07/24 documented as of this encounter
--- OUTSIDE RECORDS SUMMARY | 2024-11-16 12:03 | XMS_ITS | Encounter Summary ---
Author Organization [facility] Address [address] [place] [address] Care Team Providers Care Furniture Finisher Name Role Phone Pcp, No Primary Care Provider Unavailabl e Encounter Details Date Type Department Care Team (Late st Contact Info) Description 09/21/2024 Scanned Document [facility] [place] [address] [facility] [place] [phone] Bruna Estrada Au.D [address] [place] [phone] Social History Tobacco Use Types Packs/Day Years [...] on filedocumented in this encounter Care Teams Furniture Finisher Relationship Specialty Start Date End Date Pcp, No PCP - General General Medicine 11/07/24 documented as of this encounter
--- OUTSIDE RECORDS SUMMARY | 2024-11-16 12:03 | XMS_ITS | Clinical Summary ---
Author Organization [facility] Address [address] [place] [address] Care Team Providers Care Toddler Guide Name Role Phone Kesha Childress Primary Care Provider [phone] Allergies No known active allergies Medications Medication [...] age to complete this topic Care Teams Toddler Guide Relationship Specialty Start Date End Date Kesha Childress DO [address] [place] [address] PCP - General Family Medicine 11/16/22
--- OUTSIDE RECORDS SUMMARY | 2024-11-16 12:03 | XMS_ITS | Encounter Summary ---
Author Organization [facility] Address [address] [place] [address] Care Team Providers Care School Child Care Attendant Name Role Phone Pcp, No Primary Care Provider Unavailabl e Encounter Details Date Type Department Care Team (Late st Contact Info) Description 09/21/2024 Scanned Document [facility] [place] [address] [facility] [place] [phone] Bruna Estrada Au.D [address] [place] [phone] Social History Tobacco Use Types Packs/Day Years [...] on filedocumented in this encounter Care Teams School Child Care Attendant Relationship Specialty Start Date End Date Pcp, No PCP - General General Medicine 11/07/24 documented as of this encounter
== END 2024-11-16 10:56 | disposition home or self-care (01) ==
LOC: HO.HMCFM 10:18
PROVIDERS: PCP Nurse Practitioner Family; Visit Provider Internal Medicine
DX: M54.2 Cervicalgia (principal)

== ENCOUNTER 2024-11-18 08:47 | Outpatient (AMB) | payer BC, SELFPAY ==
--- NOTE | 2024-11-18 09:07 | MHC.OFFWIV ---
Intake Vital Signs 11/18/24 09:11 Height 5 ft 2 in Weight 176 lb 2 oz BMI 32.2 BP 102/68 Blood Pressure Location Lt brachial Position Sitting Respiration 12 Pulse 70 Pulse Source Pulse Oximeter Temp 97.5 F Temp Source Oral Pulse Oximetry (%) 98 Oxygen Delivery Method Room Air Intake Visit Reasons: Throat Infection Intake Note: Patient c/o bad taste in mouth and pressure on neck Patient Tobacco Use Status: Never used Tobacco Battery Wrecker Operator Required: No Allergies No Known Allergies Allergy (Verified 11/18/24 09:30) Medication List - Last Reconciled 11/18/24 by DEMIAN Burns- ascorbate calcium (vitamin C) 1 g PO Q6H cetirizine (Zyrtec) 10 mg PO DAILY PRN clotrimazole-betamethasone 1-0.05 % appl topical ferrous sulfate 325 mg PO DAILY fluconazole 150 mg PO Q3D PRN 2 doses levofloxacin 750 mg PO DAILY prednisone 40 mg (2 x 20 mg) PO DAILY 3 days Do you need a note to return to daycare/school/sports/work: Yes HPI HPI Comments History of Present Illness Details 54 y/o F with seasonal allergies, family history of liver cancer, family history of lung cancer, iron-deficiency anemia, obesity, perimenopause, Vit d Def, - The patient is a 54-year-old female presenting with complaints of bad taste in her mouth and neck pressure. - Symptoms initiated after an incident during a lacrosse tournament 10/31/24 where windy conditions might have led to the introduction of a foreign object into the mouth. - Follow-up care revealed red throat and prescribed a Z-Refugio (11/07) antibiotic, providing temporary symptom relief. However, symptoms recurred prompting further treatment. - Ongoing neck pain associated with glandular swelling; ENT follow-up involved consideration of further invasive exploration via scope due to incomplete visual diagnosis by CT. (Dr Roberts) - Persistent metallic taste described as medley continues; intermittent worsening noted. - Seen here 11/16 and given prednisone and levaquin. Improvement in taste and neck pain but now heading headaches and gi upset from AB. - No fever, chills,\ - Patient experienced metallic taste and neck swelling attributed to possible foreign object, with ongoing ENT evaluation for definitive diagnosis. Exam: General: Well developed, well nourished, in no acute distress. Appears stated age. Head: Normocephalic, atraumatic. Eyes: Pupils are equal, round and reactive to light and accommodation. Conjunctivae are clear. Vision grossly normal. Ears: Tympanic membrane on L show some scarring otherwise intact, Right TM intact and clear; L eac + eczema Nose: Patent, without discharge. Mouth: There are no ulcers or lesions noted. uvula midline Strep negative. No inflammation, no post nasal drip, no plaques nor exudates. Neck: Supple, shotty L ac adenopathy no thyromegaly. FROM, no erythema Discussion In our discussion, I addressed the patient's concerns regarding the persistent bad taste and neck discomfort, suggesting that the metallic taste might be related to an unresolved infection or retained foreign body. We discussed the completion of the current antibiotic regimen & prednisone. I emphasized that an emergent evaluation by ENT with a potential office-based scope procedure is recommended due to the incomplete visualization from prior imaging. I reassured the patient regarding the antibiotics' effectiveness against infectious agents and explained prednisone side effects. Additionally, I advised that I will inform Dr. Roberts? office of our current evaluations to ensure expedited diagnostic follow-up. The patient was advised on signs to monitor for, such as fever or increased swelling, which should prompt sooner evaluation. Lastly, anticipatory guidance included completion of antibiotics, ongoing ENT coordination for the procedural examination, and home care measures including yogurt for gastrointestinal support. Patient was informed and verbally consented to the use of an ambient scribe for clinic note documentation during this visit. Total time spent caring for the patient today was 30 minutes. This includes time spent before the visit reviewing the chart, time spent during the visit, and time spent after the visit on documentation, reviewing laboratory results, diagnostic imaging, medications, performing a medically necessary evaluation, counseling on diagnoses, care coordination, ordering appropriate tests, ordering appropriate medications, review of tests performed by other providers, reporting test results with the patient, communication with other healthcare providers. [facility] Medical History (Updated 11/17/24 @ 15:11 by Keerthi Miramontes MD) No pertinent family history Family History (Updated 09/02/24 @ 08:05 by Denise Holt CMA) Mother Anxiety Lung cancer Liver cancer Father Anxiety Other FH: mental illness Social History (Updated 09/02/24 @ 08:05 by Denise Holt CMA) Housing: House Alcohol intake: current Comment: occasional Patient Tobacco Use Status: Never used Tobacco e-Cigarette/Vaping Use: Never Used Second Hand Smoke Exposure: No service: No Current occupational status: employed Current occupation: Teacher Current occupational exposures/hazards: No Cognitive needs: No Hearing needs: Yes (hearing impaired left ear) Vision needs: No Physical Exam Vital Signs: Last Vital Signs Temp 97.5 F 11/18/24 09:11 Pulse 70 11/18/24 09:11 Resp 12 11/18/24 09:11 BP 102/68 11/18/24 09:11 Pulse Ox 98 11/18/24 09:11 Oxygen Delivery Method Room Air 11/18/24 09:11 BMI result Body Mass Index 32.2 Results AMB Rapid Strep AMB Rapid Strep Negative Last Edit by Velia Tang MA on 11/18/24 09:36 Assessment & Plan Assessment & Plan (1) Pharyngitis: Code(s): J02.9 - Acute pharyngitis, unspecified Qualifiers: Pharyngitis/tonsillitis etiology: unspecified etiology Qualified Code(s): J02.9 - Acute pharyngitis, unspecified (2) Halitosis: Code(s): R19.6 - Halitosis (3) Neck pain on left side: Code(s): M54.2 - Cervicalgia Plan . Orders: Orders AMB Rapid Strep Screen Today Z13.9 - Encounter for screening, unspecified Patient Instructions: - Complete the currently prescribed antibiotic course in full, even if symptoms improve early. - Monitor symptoms carefully; report any fever, increased swelling, or difficulty swallowing promptly. - Continue with prednisone as directed but be aware of potential side effects like sleep disruption or mood changes. - Schedule ENT follow-up for evaluation, potentially including scoping for direct throat assessment as recommended. - Maintain dietary intake including probiotic foods like yogurt to counteract antibiotic-related gastrointestinal discomfort. - Avoid NSAIDs for headache management while prednisolone is ongoing; Tylenol is permitted. Coding Level of Care Code Est Pt Level 4 (13358) Diagnoses Pharyngitis, unspecified etiology J02.9 Pharyngitis/tonsillitis etiology: unspecified etiology Halitosis R19.6 Neck pain on left side M54.2
--- OUTSIDE RECORDS SUMMARY | 2024-11-18 09:09 | XMS_ITS | Encounter Summary ---
Author Organization [facility] Address [address] [place] [address] Care Team Providers Care Grill Associate Name Role Phone Pcp, No Primary Care Provider Unavailabl e Encounter Details Date Type Department Care Team (Late st Contact Info) Description 09/21/2024 Scanned Document [facility] [place] [address] [facility] [place] [phone] Bruna Estrada Au.D [address] [place] [phone] Social History Tobacco Use Types Packs/Day Years [...] on filedocumented in this encounter Care Teams Grill Associate Relationship Specialty Start Date End Date Pcp, No PCP - General General Medicine 11/07/24 documented as of this encounter
--- OUTSIDE RECORDS SUMMARY | 2024-11-18 09:09 | XMS_ITS | Clinical Summary ---
Author Organization [facility] Address [address] [place] [address] Care Team Providers Care Makeup Sales Advisor Name Role Phone Pcp, No Primary Care [...] Encounters Date Type Department Care Team Description 11/17/2024 Telephone [facility] [place] 15 [facility], [place] [address] Fredrick Roberts MD 11/07/2024 2:00 PM EDT Office Visit [facility] [address] [place] [phone] Fierstein, Ashish, MD Devitt, Socorro C, WINDOWS [employer] ADMINISTRATOR Neck pain on left side (Primary Dx); Acute tonsillitis, unspecified etiology; Cervical strain, acute, initial encounter 11/07/2024 Scanned Document [facility] 80 [facility] [address] [place] [address] Provider, Generic 11/07/2024 Scanned Document [facility] 80 [facility] [address] [place] [address] Provider, Generic 11/07/2024 Travel 09/21/2024 1:30 PM EST Clinical Support [facility] 15 [facility] [place] [address] Fredrick Roberts MD Czaplicki, Allison, Au.D Mixed conductive and sensorineural hearing loss of left ear with restricted hearing of right ear (Primary Dx); Sensorineural hearing loss (SNHL) of right ear with restricted hearing of left ear; Eczema of both external ears 09/21/2024 Scanned Document [facility] 15 [facility] [place] [address] Bruna Estrada Au.D 09/21/2024 Scanned Document [facility] [address] [place] [address] Bruna Estrada Au.D 09/13/2024 Transcribe Orders [facility] Desirae Solomon APRN Hearing loss of left ear, unspecified hearing loss type (Primary Dx) from Last 3 Months Immunizations Name Administration Dates Next Due Covid-19 MRNA Vaccine - Local[employer] 12+ (Purple Cap) 07/01/2021 Influenza Inactivated/Split Preservative [...] (2023-2 5 season) 2024 07/01/2021, 11/17/2020, 10/27/2020 DTaP/Tdap/Td Vaccines (3 - T d or Tdap) 01/26/2029 01/26/2019, 06/13/2011 Procedures Procedure Name Priority Date/Time Associated Diagnosis Comments CT MASTOID W/O CONTRAST Routine 11/16/2024 2:36 PM EDT Sensorineural hearing loss (SNHL) of right ear [...] ear from Last 3 Months Results * CT Mastoid w/o contrast (11/16/2024 2:36 PM EDT) Anatomical Region Laterality Modality Head Computed Tomogra phy 11/16/2024 2:45 PM EDT 11/16/2024 2:45 PM EDT Impressions 11/16/2024 7:20 PM EDT 1. 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 The left temporal bone is otherwise unremarkable. 2. Normal right temporal bone Electronically signed by: ??Walter Ryder MD ??11/16/2024 07:20 PM EDT Thank you for referring your patient to us, Walter Ryder M.D. [id number] (Electronically Signed - 11/16/2024 19:20) Copy: PATIENT , ?? Narrative 11/16/2024 7:20 PM EDT EXAMINATION: CT INNER EAR TEMPORAL BONES CLINICAL INFORMATION: Sensorineural hearing loss right side, conductive hearing loss on the left COMPARISON: None available. TECHNIQUE: Multidetector helical imaging was performed in the axial plane with generation of oblique axial and coronal reformatted projections. This CT examination was performed using dose optimization techniques as appropriate, variously including the following: *Automated exposure control *Adjustment of mA and/or kV according to patient size (this includes techniques or standardized protocols for targeted exams where dose is matched to indication/reason for exam; i.e. extremities or head) *Use of iterative reconstruction technique DLP: For 69 FINDINGS: Right: The external auditory canal is patent. The scutum is normal in appearance. The tympanic membrane does not appear thickened. The ossicles are anatomic. No evidence of a soft tissue mass in the middle ear cavity. The internal auditory canal is normal. There is no evidence of dehiscence of the tegmen tympani. There is thinning of the bony covering of the superior semicircular canal but no tye dehiscence. Carotid and jugular canals are unremarkable. The mastoid air cells are well aerated. Left: External auditory canal is patent. The scutum is normal in appearance. The tympanic membrane does not appear thickened. The ossicles are anatomic. No evidence of a soft tissue mass in the middle ear cavity. The internal auditory canal is normal. There appears to be an area of bony dehiscence of the superior semicircular canal. Carotid and jugular canals are unremarkable. The mastoid air cells are well aerated. The soft tissue planes of the nasopharynx are symmetric. Procedure Note Walter Ryder MD - 11/16/2024 EXAMINATION: CT INNER EAR TEMPORAL BONES CLINICAL INFORMATION: Sensorineural hearing loss right side, conductive hearing loss on theleft COMPARISON: None available. TECHNIQUE: Multidetector helical imaging was performed in the axial plane withgeneration of oblique axial and coronal reformatted projections. This CT examination was performed using dose optimization techniques asappropriate, variously including the following: *Automated exposure control *Adjustment of mA and/or kV according to patient size (this includestechniques or standardized protocols for targeted exams where dose ismatched to indication/reason for exam; i.e. extremities or head) *Use of iterative reconstruction technique DLP: For 69 FINDINGS: Right: The external auditory canal is patent. The scutum is normal inappearance. The tympanic membrane does not appear thickened. The ossiclesare anatomic. No evidence of a soft tissue mass in the middle ear cavity.The internal auditory canal is normal. There is no evidence of dehiscence of the tegmen tympani. There isthinning of the bony covering of the superior semicircular canal but nofrank dehiscence. Carotid and jugular canals are unremarkable. The mastoidair cells are well aerated. Left: External auditory canal is patent. The scutum is normal inappearance. The tympanic membrane does not appear thickened. The ossiclesare anatomic. No evidence of a soft tissue mass in the middle ear cavity.The internal auditory canal is normal. There appears to be an area of bony dehiscence of the superiorsemicircular canal. Carotid and jugular canals are unremarkable. Themastoid air cells are well aerated. The soft tissue planes of the nasopharynx are symmetric. IMPRESSION: 1. 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 Theleft temporal bone is otherwise unremarkable. 2. Normal right temporal bone Electronically signed by: Walter Ryder MD 11/16/2024 07:20 PM EDT RPWorkstation: [id number] Thank you for referring your patient to us, Walter Ryder M.D. [id number] (Electronically Signed - 11/16/2024 19:20) Copy: PATIENT , Fredrick Roberts MD IMG CT ORDERABLES * Audiometry (09/21/2024 1:30 PM EST) Narrative Bruna Estrada Au.D - 09/21/2024 1:30 PM EST Jose Alberto Mckeon ? 09/21/2024 ??2:03 PM Fredrick Roberts MD AUDIOLOGY SERVICES O RDERABLES from Last 3 Months Care Teams Makeup Sales Advisor Relationship Specialty Start Date End Date Pcp, No PCP - General General Medicine 11/07/24
--- OUTSIDE RECORDS SUMMARY | 2024-11-18 09:09 | XMS_ITS | Encounter Summary ---
Author Organization [facility] Address [address] [place] [address] Care Team Providers Care Cruise Counselor Name Role Phone Pcp, No Primary Care Provider Unavailabl e Encounter Details Date Type Department Care Team (Late st Contact Info) Description 11/07/2024 Scanned Document [address] [phone] Provider, Generic Social History Tobacco Use Types [...] on filedocumented in this encounter Care Teams Cruise Counselor Relationship Specialty Start Date End Date Pcp, No PCP - General General Medicine 11/07/24 documented as of this encounter
--- OUTSIDE RECORDS SUMMARY | 2024-11-18 09:09 | XMS_ITS | Clinical Summary ---
Author Organization [facility] Address [address] [place] [address] Care Team Providers Care Quality Assurance Inspector Name Role Phone Kesha Childress Primary Care Provider [phone] Allergies No known active allergies Medications Medication [...] age to complete this topic Care Teams Quality Assurance Inspector Relationship Specialty Start Date End Date Kesha Childress DO [address] [place] [address] PCP - General Family Medicine 11/16/22
--- OUTSIDE RECORDS SUMMARY | 2024-11-18 09:09 | XMS_ITS | Encounter Summary ---
Author Organization [facility] Address [address] [place] [address] Care Team Providers Care Operations Management Professionals Name Role Phone Pcp, No Primary Care Provider Unavailabl e Encounter Details Date Type Department Care Team (Late st Contact Info) Description 11/17/2024 Telephone [facility] [address], [place] [phone] Fredrick Roberts MD [address] [place] [id number] Social History Tobacco Use Types Packs/Day Years [...] on file documented as of this encounter Miscellaneous Notes * Telephone Encounter - Angie Felix MA - 11/17/2024 11:27 AM EDT Please see message from Dr Roberts * Telephone Encounter - Angie Felix MA - 11/17/2024 11:27 AM EDT ----- Message from Fredrick Roberts MD sent at 11/17/2024 10:20 AM EDT ----- Regarding: Results Spoke with Marcella regarding CT results. She is interested in setting up 2 appointments. Can you forward to scheduling to set up a follow-up with me (next available) for sore throat and a hearing aidevaluation with Bruna in [place]? Thanks ----- Message ----- From: Interface, Ris Results In Sent: 11/16/2024 7:24 PM EDT To: Fredrick Roberts MD documented in this encounter Plan of Treatment Not on file documented as of this encounter Visit Diagnoses Not on filedocumented in this encounter Care Teams Operations Management Professionals Relationship Specialty Start Date End Date Pcp, No PCP - General General Medicine 11/07/24 documented as of this encounter
--- OUTSIDE RECORDS SUMMARY | 2024-11-18 09:09 | XMS_ITS | Encounter Summary ---
Author Organization [facility] Address [address] [place] [address] Care Team Providers Care Swatch Clerk Name Role Phone Pcp, No Primary Care Provider Unavailabl e Encounter Details Date Type Department Care Team (Late st Contact Info) Description 09/21/2024 Scanned Document [facility] [place] 15 [facility], [place] [phone] Bruna Estrada Au.D [address] [place] [id number] Social History Tobacco Use Types Packs/Day Years [...] on filedocumented in this encounter Care Teams Swatch Clerk Relationship Specialty Start Date End Date Pcp, No PCP - General General Medicine 11/07/24 documented as of this encounter
--- OUTSIDE RECORDS SUMMARY | 2024-11-18 09:09 | XMS_ITS | Encounter Summary ---
Author Organization [facility] Address [address] [place] [address] Care Team Providers Care Cloth Winder Name Role Phone Pcp, No Primary Care Provider Unavailabl e Encounter Details Date Type Department Care Team (Late st Contact Info) Description 11/07/2024 Scanned Document [address] [phone] Provider, Generic Social History Tobacco Use Types [...] on filedocumented in this encounter Care Teams Cloth Winder Relationship Specialty Start Date End Date Pcp, No PCP - General General Medicine 11/07/24 documented as of this encounter
[2024-11-18 09:11] VITALS: BP 102/68; PULSE 70; RESP 12; TEMP 36.4; O2SAT 98; BMI 32.2
== END 2024-11-18 09:45 | disposition home or self-care (01) ==
LOC: HO.HMCFM 08:48
PROVIDERS: PCP Nurse Practitioner Family; Visit Provider Nurse Practitioner Family
DX: J02.9 Acute pharyngitis, unspecified (principal); R19.6 Halitosis; M54.2 Cervicalgia; Z13.9 Encounter for screening, unspecified

== ENCOUNTER → 2024-11-18 08:47 | Outpatient (BNVA) | payer BC, SELFPAY | PROVIDERS: PCP Nurse Practitioner Family; Visit Provider Nurse Practitioner Family | DX: J02.9 Acute pharyngitis, unspecified (principal); R19.6 Halitosis; M54.2 Cervicalgia | CPT/HCPCS: 87880 ==

== ENCOUNTER 2025-01-13 12:51 | Outpatient (AMB) | payer BC, SELFPAY ==
--- NOTE | 2025-01-13 12:58 | A.OFFPC_ITS ---
Vital Signs 3 01/13/25 13:05 Height 5 ft 2 in Weight 175 lb BMI 32.0 BP 104/68 Blood Pressure Location Rt brachial Position Sitting Respiration 12 Pulse 75 Pulse Source Pulse Oximeter Temp 97.5 F Temp Source Oral Pulse Oximetry (%) 95 Oxygen Delivery Method Room Air Intake Visit Reasons: Neck Pain Intake Note: Patient c/o neck px x2 months on and off. Patient was also seen at urgent care for a left ear infection Presales Consultant Required: No Allergies levaquin Allergy (Mild, Uncoded 01/13/25 13:32) throat sensation Medication List - Last Reconciled 01/13/25 by Desirae Solomon, RN TRIAGE-BC ascorbate calcium (vitamin C) 1 g PO Q6H betamethasone dipropionate 0.05% 1 appl topical cetirizine (Zyrtec) 10 mg PO DAILY PRN clotrimazole-betamethasone 1-0.05 % appl topical fluocinolone acetonide oil 0.01% drps otic (ears) tacrolimus 0.1% 1 appl topical BID Tobacco use date assessed: 01/13/25 Dental Screening Dental Screen Date: 01/13/25 Did you have a dental visit in the last 12 months?: Yes Did you have a dental problem in the last 6 months where you did not have access to dental care?: No Was dental information given to patient?: Patient has dentist HPI HPI Comments 2 History of Present Illness0 Details 54 y/o F with seasonal allergies, family history of liver cancer, family history of lung cancer, iron-deficiency anemia, obesity, perimenopause, Vit d Def, History of Present Illness - The patient is a 54-year-old female pr esenting with a referral request for physical therapy or chiropractic consultation. Has L sided neck pain for the past few days Walking dtrs dog who did pull on the leash when using L arm Worse since that time Active does a lot of pulling and pushing Using APAP and Motrin and aleve with + relief Better since onset. Denies fever, chills, redness, headache, n/v. She does have OM L ear and is on Augmentin. She has fully recovered from her previous episode of halitosis and ? FB inhalation. Plan Recommend chiro eval send me message if referral needed try topical diclofenac gel, oral magnesium, warm moist heat, gentle stretching,avoid bothersome activities, otc analegesics. If worse, seek additional care. Complete AB for OM L ear. RTO as scheduled. Consent Patient was informed and verbally consented to the use of an ambient scribe for clinic note documentation during this visit. Total time spent caring for the patient today was 30 minutes. This includes time spent before the visit reviewing the chart, time spent during the visit, and time spent after the visit on documentation, reviewing laboratory results, diagnostic imaging, medications, performing a medically necessary evaluation, counseling on diagnoses, care coordination, ordering appropriate tests, ordering appropriate medications, review of tests performed by other providers, reporting test results with the patient, communication with other healthcare providers. PENDING SALE TO [facility] Medical History No pertinent family history Family History Mother Anxiety Lung cancer Liver cancer Father Anxiety Other FH: mental illness Social History Housing: House Alcohol intake: current Comment: occasional Patient Tobacco Use Status: Never used Tobacco e-Cigarette/Vaping Use: Never Used Second Hand Smoke Exposure: No service: No Current occupational status: employed Current occupation: Teacher Current occupational exposures/hazards: No Cognitive needs: No Hearing needs: Yes (hearing impaired left ear) Vision needs: No Questionnaire Thrive Questionnaire Date Thrive assessed: 09/01/24 I am a: Patient What is your living situation today?: I have a steady place to live Within the past 12 months, did the food you bought not last and you didn't have the money to get more?: Never true Within the past 12 months, did you worry whether your food would run out before you got money to buy more?: Never true Do you have trouble paying for medicines?: No Do you have trouble getting transportation to medical appointments?: No Do you have trouble paying your heating and electricity bill?: No Do you have trouble taking care of your child, family member or friend?: No Do you have trouble with day-to-day activities such as bathing, preparing meals, shopping, managing finances, etc.?: No Are you currently unemployed and looking for a job?: No Are you interested in more education?: Yes Please select the resources that you would like help with: None Currently or been in a relationship where the following occur: No concerns reported THRIVE Score: 0 SAPPHIRE-7 AMB Questionnaire SAPPHIRE-7 Date SAPPHIRE - 7 assessed: 09/02/24 Source: Developed by Drs. Ray Peraza, Vanessa Silva, Dontae Joshua and colleagues, with an educational ehsan from [employer] Physical exam (Primary Care) Vital Signs: Last Vital Signs Temp 97.5 F 01/13/25 13:05 Pulse 75 01/13/25 13:05 Resp 12 01/13/25 13:05 BP 104/68 01/13/25 13:05 Pulse Ox 95 01/13/25 13:05 Oxygen Delivery Method Room Air 01/13/25 13:05 BMI result Body Mass Index 32.0 Tobacco/Smoking Status: Tobacco use Status Tobacco use date assessed 01/13/25 01/13/25 12:59 Patient Tobacco Use Status Never used Tobacco 01/13/25 12:59 e-Cigarette/Vaping Use Never Used 01/13/25 12:59 Thrive Assessment: Date of Thrive Assessment Date Thrive assessed 09/01/24 01/13/25 12:59 Currently or been in a relationship where the following occur: No concerns reported HENHI Head: Yes normal to inspection, Yes normocephalic and Yes atraumatic Ears: TM abnormal (LEFT) dull on the left and diffuse and with fluid behind the TM on the left Neck Neck: Yes normal visual inspection, Yes full ROM, Yes no lymphadenopathy, Yes no meningeal signs and Yes tender (OVER LEFT TRAP) Neck images: 2 1. TENDER TO PALP, FEELS PULLING WITH LEFT LATERAL ROTATION AND EAR TO SHOULDER ON THE LEFT SIDE. OTHERWISE FULL NORMAL ROM. SHE HAS NO PAIN OVER CLAVICLE OR SHOULDER. FROM AND NORMAL STRENGTH AND PUSLES OF BILAT UPPER ARMS. Neuro General: no meningeal signs Coding Level of Care Code Est Pt Level 4 (41848) Complex EM visit Add On G2211 Diagnoses Neck pain M54.2 Neck muscle spasm M62.838 Non-recurrent acute suppurative otitis media of left ear without spontaneous rupture of tympanic membrane H66.002 Otitis media type: suppurative Chronicity: acute Recurrence: non-recurrent Spontaneous tympanic membrane rupture: without spontaneous rupture Assessment & Plan Assessment & Plan (1) Neck pain: Code(s): M54.2 - Cervicalgia Category: Medical (2) Neck muscle spasm: Code(s): M62.838 - Other muscle spasm Category: Medical (3) Otitis media, left: Code(s): H66.92 - Otitis media, unspecified, left ear Qualifiers: Otitis media type: suppurative Chronicity: acute Recurrence: non- recurrent Spontaneous tympanic membrane rupture: without spontaneous rupture Q ualified Code(s): H66.002 - Acute suppurative otitis media without spontaneous rupture of ear drum, left ear Plan .
[2025-01-13 13:05] VITALS: BP 104/68; PULSE 75; RESP 12; TEMP 36.4; O2SAT 95; BMI 32.0
--- OUTSIDE RECORDS SUMMARY | 2025-01-13 13:15 | XMS_ITS | Encounter Summary ---
Author Organization [facility] Address [address] [place] [address] Care Team Providers Care Organic Extractions Technician Name Role Phone Pcp, No Primary Care Provider Unavailabl e Encounter Details Date Type Department Care Team (Late st Contact Info) Description 11/07/2024 Scanned Document [address] [phone] Provider, Generic Social History Tobacco Use Types Packs/Day Years Used Date Smoking Tobacco: Never Passive Smoke Exposure: Never Smokeless Tobacco: Never Alcohol Use Standard Drinks/Week Comments Never 0 (1 standard drink = 0.6 oz pur e alcohol) Comments Unknown Sex and Gender Information Value Date Recorded Sex Assigned at Female 09/16/2024 6:29 PM EST Legal Sex Female 9:00 AM EDT Gender Identity Female 09/16/2024 6:29 PM EST Sexual Orientation Not on file documented as of this encounter Plan of Treatment Not on file documented as of this encounter Visit Diagnoses Not on filedocumented in this encounter Care Teams Organic Extractions Technician Relationship Specialty Start Date End Date Pcp, No PCP - General General Medicine 11/07/24 documented as of this encounter
== END 2025-01-13 13:44 | disposition home or self-care (01) ==
LOC: HO.HMCFM 12:51
PROVIDERS: PCP Nurse Practitioner Family; Visit Provider Nurse Practitioner Family
DX: M54.2 Cervicalgia (principal); M62.838 Other muscle spasm; H66.002 Acute suppurative otitis media without spontaneous rupture of ear drum, left ear

== ENCOUNTER → 2025-01-13 12:51 | Outpatient (BNVA) | payer BC, SELFPAY | PROVIDERS: PCP Nurse Practitioner Family; Visit Provider Nurse Practitioner Family | DX: Z13.89 Encounter for screening for other disorder (principal) ==

== ENCOUNTER 2025-02-26 07:40 | Outpatient (REF) | payer BC, SELFPAY ==
--- OUTSIDE RECORDS SUMMARY | 2025-02-26 07:41 | XMS_ITS | Encounter Summary ---
Author Organization [facility] Address [address] [place] [address] Care Team Providers Care Insulation Cupola Charger Name Role Phone Pcp, No Primary Care Provider Unavailabl e Encounter Details Date Type Department Care Team (Late st Contact Info) Description 11/07/2024 Scanned Document [facility] [address] [facility] [address] [place] [phone] Provider, Generic Social History Tobacco Use [...] as of this encounter Plan of Treatment Upcoming Encounters Date Type Department Care Team (Late st Contact Info) Description 03/03/2025 1:00 PM EDT Clinical Support [facility] [place] 15 [facility], [place] [phone] Bruna Estrada Au.D [address] [place] [address] documented as of this encounter Visit Diagnoses Not on filedocumented in this encounter Care Teams Insulation Cupola Charger Relationship Specialty Start Date End Date Pcp, No PCP - General General Medicine 11/07/24 documented as of this encounter
--- OUTSIDE RECORDS SUMMARY | 2025-02-26 07:42 | XMS_ITS ---
Author Name [facility] Organization Unknown History of Medication Use Medication Directions Dispensed Refills Start Date End Date Stat us amoxicillin-clavulana te (AUGMENTIN) 875-125 MG per tablet Take 1 tablet by mouth 2 (two) times a day. 01/10/2025 active azithromycin (ZITHROMAX) 250 MG tablet Take 2 tablets by mouth on day 1 followed by 1 tablet by mouth daily on days 2 through 5. 11/07/2024 active Fluocinolone Acetonide 0.01 % Oil Administer 4 drops into both ears 2 times a day. 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 2019-01-26 ProblemAct [facility] Immunizations Vaccine Date Source Lot Number Status Influenza, Quadrivalent (FLU CELVAX) MDCK, Preservative Free IM 08/09/2022 [facility] [id number] completed Influenza, Quadrivalent (FLU CELVAX) MDCK, Preservative Free IM 08/22/2021 [facility] [id number] completed Covid-19 MRNA Vaccine - Pfiz er 12+ (Purple Cap) 07/01/2021 [facility] completed Tdap 01/26/2019 [facility] [id number] completed Influenza, Trivalent (FLUARI X, AFLURIA, FLULAVAL, FLUZONE) Preservative Free IM 06/04/2013 [facility] [id number] completed Tdap 06/13/2011 [facility] [id number] completed Encounters Encounter Type Encounter Reason Primary Diagnosis Location Date Ambulatory Earache Earache [facility] 01/10/2025 Ambulatory Neck Pain Neck Pain [facility] 11/07/2024 Ambulatory Mixed conductive and sensorineural hearing loss, unilateral, left ear with restricted hearing on the contralateral side Mixed conductive and sensorineural hearing loss, unilateral, left ear with restricted hearing on the contralateral side [facility] 09/21/2024 Ambulatory Other Other [facility] 12/18/2023 Ambulatory Other Other [facility] 12/13/2023 Care Team Organization Name Specialty Phone Email Start Date End Da te [facility] PCP Group Chief Operator 11/10/2024 02/08/2025 [facility] NO PCP Primary Care 11/07/2024 [facility] Primary Care 12/14/2023 02/08/2025 [facility] 12/13/2023 [facility] Primary Care 12/13/2023
--- OUTSIDE RECORDS SUMMARY | 2025-02-26 07:42 | XMS_ITS | Clinical Summary ---
Author Organization [facility] Address [address] [place] [address] Care Team Providers Care Tenter Name Role Phone Kesha Childress DO Primary Care Provider [phone] Allergies No known active allergies Medications Medication [...] 73 12/25/2022 1:55 PM EDT Temperature 36.7 C (98 F) 12/25/2022 1:55 PM EDT Respiratory Rate - [...] 2024 07/01/2021, 11/17/2020, 10/27/2020 Influenza Vaccine (#1) 2025 2, 08/09/2022, 08/22/2021, Additional history exists DTap / Tdap / Td (2 - Td or Tdap) 01/26/2029 01/26/2019 Pneumococcal Vaccine Aged Out No long er eligible based on patient's age to complete this topic RSV Ped < 20 months Aged Out No longe r eligible based on patient's age to complete this topic Care Teams Tenter Relationship Specialty Start Date End Date Kesha Childress DO [address] [place] [address] PCP - General Family Medicine 11/16/22
[2025-02-26 11:31] LABS: Hematocrit 41.8 % (37.0-47.0); Hemoglobin 14.4 g/dl (12.0-16.0); Mean Corpuscular HGB Conc 34.4 g/dl (31.0-35.0); Mean Corpuscular Hemoglobin 29.6 pg (27.0-33.0); Mean Corpuscular Volume 86.0 fL (80.0-98.0); NRBC Abs Auto 0.000 X10*3/uL (0.0-0.012); NRBC Pct Auto 0.0 /100WBC (0.0-0.2); Platelet Count 211 X10*3/uL (160-400); Red Blood Count 4.86 X10*6/uL (4.20-5.50); White Blood Count 7.6 X10*3/uL (4.8-10.8)
[2025-02-26 11:55] LABS: Iron 67 mcg/dL (30-160); Percent Iron Saturation 23 % (15-50); Total Iron Binding Capacity 293 mcg/dL (228-428); Unsaturated Iron Binding 226 ug/dL
[2025-02-26 12:20] LABS: Folate 13.4 ng/mL (> or = 4.0); Vitamin B12 579 pg/mL (200-900)
== END 2025-02-26 07:41 | disposition home or self-care (01) ==
LOC: HO.WFDLDS 07:40
PROVIDERS: Visit Provider Nurse Practitioner Family
DX: E53.8 Deficiency of other specified B group vitamins (principal); D50.9 Iron deficiency anemia, unspecified; E55.9 Vitamin D deficiency, unspecified
CPT/HCPCS: 36415; 82306; 82607; 82746; 83540; 85027

== ENCOUNTER 2025-03-01 12:44 | Outpatient (AMB) | payer BC, SELFPAY ==
--- NOTE | 2025-03-01 12:54 | A.OFFPC_ITS ---
Vital Signs 03/01/25 14:08 Height 5 ft 2 in Weight 165 lb BMI 30.2 Intake Visit Reasons: 6 months fu iron def/b12/vit d tele/or in person Intake Note: Telehealth to review labs Toll Testboard Worker Required: No Allergies levaquin Allergy (Mild, Uncoded 03/01/25 13:50) throat sensation Medication List - Last Reconciled 03/01/25 by Desirae Solomon, CONFORMAL PAD FORMER- ascorbate calcium (vitamin C) 1 g PO Q6H betamethasone dipropionate 0.05% 1 appl topical cetirizine (Zyrtec) 10 mg PO DAILY PRN clotrimazole-betamethasone 1-0.05 % appl topical fluocinolone acetonide oil 0.01% drps otic (ears) tacrolimus 0.1% 1 appl topical BID Tobacco use date assessed: 03/01/25 Dental Screening Dental Screen Date: 03/01/25 Did you have a dental visit in the last 12 months?: Yes Did you have a dental problem in the last 6 months where you did not have access to dental care?: No Was dental information given to patient?: Patient has dentist HPI HPI Comments History of Present Illness Details 54 y/o F with seasonal allergies, family history of liver cancer, fam мария history of lung cancer, iron-deficiency anemia, obesity, perimenopause, Vit d Def History of Present Illness - The patient is a 54-year-old female pr esenting for follow-up on laboratory results and management of neck pain. - Iron deficiency anemia previously iden tified is now resolved - Vitamin B12 levels improved from low 3 00s to 579. - Vitamin D deficiency improved from low levels to 121. - Taking MVI with Iron QD. - Ongoing neck pain, did not seek care w / chiro or PT yet; trialing new pillows. Reviewed potential chiropractic or physical therapy treatment. - Met w/ nutrition x 1, given wt loss pl an, started [employer], has lost 10 lbs, feels good. Review of Systems - Musculoskeletal: Reports neck pain. - No other systems reported during the c onversation. Results - Labs: Vitamin B12 level improved to 57 9. Vitamin D level improved to 121. See below Assessment and Plan 1. Iron Deficiency Anemia - Continue multivitamin with iron 2. Vitamin D Deficiency - Levels improved; continue current louis min regimen. 3. Vitamin B12 Level - Levels improved; maintain current supp lementation. 4. Neck Pain - Consider chiropractic for quicker reli ef; exploring physical therapy options. - Investigating sleep setups for potenti al improvement. - Send me portal message if worsening or referrals needed 5. Wt loss w/ [employer], Congratulated ; encouraged to cont. RTO GUY FOR CPE LABS 1 WEEK BEFORE, MESSAGE SENT TO FRONT OFFICE TO SCHEDULE Telehealth Attestation This visit and all associated documentation were conducted and completed via telehealth communication. The patient has been explained that this is an interactive (audio/video) telehealth encounter and what that consists of. The patient understands and wishes to proceed. K[employer] platform was used. Total time spent caring for the patient today was 15 minutes. This includes time spent before the visit reviewing the chart, time spent during the visit, and time spent after the visit on documentation, reviewing laboratory results, diagnostic imaging, medications, performing a medically necessary evaluation, counseling on diagnoses, care coordination, ordering appropriate tests, ordering appropriate medications, review of tests performed by other providers, reporting test results with the patient, communication with other healthcare providers. [facility] Medical History No pertinent family history Family History Mother Anxiety Lung cancer Liver cancer Father Anxiety Other FH: mental illness Social History Housing: House Alcohol intake: current Comment: occasional Patient Tobacco Use Status: Never used Tobacco e-Cigarette/Vaping Use: Never Used Second Hand Smoke Exposure: No service: No Current occupational status: employed Current occupation: Teacher Current occupational exposures/hazards: No Cognitive needs: No Hearing needs: Yes (hearing impaired left ear) Vision needs: No Questionnaire Thrive Questionnaire Date Thrive assessed: 09/01/24 I am a: Patient What is your living situation today?: I have a steady place to live Within the past 12 months, did the food you bought not last and you didn't have the money to get more?: Never true Within the past 12 months, did you worry whether your food would run out before you got money to buy more?: Never true Do you have trouble paying for medicines?: No Do you have trouble getting transportation to medical appointments?: No Do you have trouble paying your heating and electricity bill?: No Do you have trouble taking care of your child, family member or friend?: No Do you have trouble with day-to-day activities such as bathing, preparing meals, shopping, managing finances, etc.?: No Are you currently unemployed and looking for a job?: No Are you interested in more education?: Yes Please select the resources that you would like help with: None Currently or been in a relationship where the following occur: No concerns reported THRIVE Score: 0 SAPPHIRE-7 AMB Questionnaire SAPPHIRE-7 Date SAPPHIRE - 7 assessed: 09/02/24 Source: Developed by Drs. Ray Peraza, Vanessa Silva, Dontae Joshua and colleagues, with an educational ehsan from [email or web address]. Physical exam (Primary Care) Tobacco/Smoking Status: Tobacco use Status Tobacco use date assessed 03/01/25 03/01/25 12:56 Patient Tobacco Use Status Never used Tobacco 03/01/25 12:56 e-Cigarette/Vaping Use Never Used 03/01/25 12:56 Thrive Assessment: Date of Thrive Assessment Date Thrive assessed 09/01/24 03/01/25 12:56 Currently or been in a relationship where the following occur: No concerns reported Telehealth Telehealth Telehealth Platform: [facility] Location of provider rendering services: practice address Location of patient: address on file Patient Identification confirmed using: Name, : Yes Telehealth method: voice only Patient verbally consented to treatment: Yes Patient verbally consented to billing insurance company: Yes Patient informed of any privacy concerns related to visit: Yes Minutes spent on Phone/Video with Pt.: 10 Results Reviewed Results Reviewed: Labs from 09/02/2024 show normal CBC, normal electrolytes, normal renal function, hemoglobin A1c 5.4%, normal iron profile, elevated ALT of 53, normal AST and alk phos, total cholesterol 198, triglycerides 186, LDL 93, HDL 60 gait, B12 normal but low end of normal at 322, vitamin-D is low 24.2, normal TSH and Folate, normal urine microalbumin creatinine ratio 02/26/2025 Laboratory Result Units Range Interpretation Provider Comments White Blood Count 7.6 X10*3/uL (4.8-10.8) Red Blood Count 4.86 X10*6/uL (4.20-5.50) Hemoglobin 14.4 g/dl (12.0-16.0) Hematocrit 41.8 % (37.0-47.0) Mean Corpuscular Volume 86.0 fL (80.0-98.0) Mean Corpuscular Hemoglobin 29.6 pg (27.0-33.0) Mean Corpuscular Hemoglobin Concent 34.4 g/dl (31.0-35.0) Red Cell Distribution Width 13.6 % (11.0-16.0) Platelet Count 211 X10*3/uL (160-400) Mean Platelet Volume 11.4 fL (9.4-12.3) Nucleated RBC Absolute Count (auto) 0.000 X10*3/uL (0.0-0.012) Nucleated Red Blood Cells % (auto) 0.0 /100WBC (0.0-0.2) Iron Level 67 mcg/dL (30-160) Total Iron Binding Capacity 293 mcg/dL (228-428) Percent Iron Saturation 23 % (15-50) Unsaturated Iron Binding 226 ug/dL Vitamin B12 Level 579 pg/mL (200-900) 25-Hydroxy Vitamin D Total 121.4 ng/mL (>30) Folate 13.4 ng/mL (> or = 4.0) Coding Level of Care Code Tele Est Pt Level 2 (02224) Complex EM visit Add On G2211 Diagnoses Vitamin D deficiency E55.9 B12 deficiency E53.8 Iron deficiency anemia, unspecified iron deficiency anemia type D50.9 Iron deficiency anemia type: unspecified iron deficiency Obesity (BMI 30-39.9) E66.9 Neck pain on left side M54.2 Neck pain M54.2 Neck muscle spasm M62.838 Assessment & Plan Assessment & Plan (1) Vitamin D deficiency: Code(s): E55.9 - Vitamin D deficiency, unspecified Category: Medical (2) B12 deficiency: Code(s): E53.8 - Deficiency of other specified B group vitamins Category: Medical (3) Iron deficiency anemia: Code(s): D50.9 - Iron deficiency anemia, unspecified Category: Medical Qualifiers: Iron deficiency anemia type: unspecified iron deficiency Qualified Code(s): D50.9 - Iron deficiency anemia, unspecified (4) Obesity (BMI 30-39.9): Code(s): E66.9 - Obesity, unspecified Category: Medical (5) Neck pain on left side: Code(s): M54.2 - Cervicalgia Category: Medical (6) Neck pain: Code(s): M54.2 - Cervicalgia Category: Medical (7) Neck muscle spasm: Code(s): M62.838 - Other muscle spasm Category: Medical Plan . Orders: Orders Complete Blood Count no Diff 6 Months D50.9 - Iron deficiency anemia, unspecified, E53.8 - Deficiency of other specified B group vitamins, E55.9 - Vitamin D deficiency, unspecified, E66.9 - Obesity, unspecified, Z00.00 - Encounter for general adult medical examination without abnormal findings Lipid Panel 6 Months D50.9 - Iron deficiency anemia, unspecified, E53.8 - Deficiency of other specified B group vitamins, E55.9 - Vitamin D deficiency, unspecified, E66.9 - Obesity, unspecified, Z00.00 - Encounter for general adult medical examination without abnormal findings Microalbumin, Random (w Creat) 6 Months D50.9 - Iron deficiency anemia, unspecified, E53.8 - Deficiency of other specified B group vitamins, E55.9 - Vitamin D deficiency, unspecified, E66.9 - Obesity, unspecified, Z00.00 - Encounter for general adult medical examination without abnormal findings TSH reflex Free T4 6 Months D50.9 - Iron deficiency anemia, unspecified, E53.8 - Deficiency of other specified B group vitamins, E55.9 - Vitamin D deficiency, unspecified, E66.9 - Obesity, unspecified, Z00.00 - Encounter for general adult medical examination without abnormal findings Vitamin B12 and Folate 6 Months D50.9 - Iron deficiency anemia, unspecified, E53.8 - Deficiency of other specified B group vitamins, E55.9 - Vitamin D deficiency, unspecified, E66.9 - Obesity, unspecified, Z00.00 - Encounter for general adult medical examination without abnormal findings Vitamin D 25-OH Total 6 Months D50.9 - Iron deficiency anemia, unspecified, E53.8 - Deficiency of other specified B group vitamins, E55.9 - Vitamin D deficiency, unspecified, E66.9 - Obesity, unspecified, Z00.00 - Encounter for general adult medical examination without abnormal findings Comprehensive Met. Panel 6 Months D50.9 - Iron deficiency anemia, unspecified, E53.8 - Deficiency of other specified B group vitamins, E55.9 - Vitamin D deficiency, unspecified, E66.9 - Obesity, unspecified, Z00.00 - Encounter for general adult medical examination without abnormal findings Ferritin 6 Months D50.9 - Iron deficiency anemia, unspecified, E53.8 - Deficiency of other specified B group vitamins, E55.9 - Vitamin D deficiency, unspecified, E66.9 - Obesity, unspecified, Z00.00 - Encounter for general adult medical examination without abnormal findings Hemoglobin A1c 6 Months D50.9 - Iron deficiency anemia, unspecified, E53.8 - Deficiency of other specified B group vitamins, E55.9 - Vitamin D deficiency, unspecified, E66.9 - Obesity, unspecified, Z00.00 - Encounter for general adult medical examination without abnormal findings IRON PROFILE 6 Months D50.9 - Iron deficiency anemia, unspecified, E53.8 - Deficiency of other specified B group vitamins, E55.9 - Vitamin D deficiency, unspecified, E66.9 - Obesity, unspecified, Z00.00 - Encounter for general adult medical examination without abnormal findings
--- OUTSIDE RECORDS SUMMARY | 2025-03-01 13:24 | XMS_ITS | Encounter Summary ---
Author Organization [facility] Address [address] [place] [address] Care Team Providers Care Printer Repair Technician Name Role Phone Pcp, No Primary Care Provider Unavailabl e Encounter Details Date Type Department Care Team (Late st Contact Info) Description 11/07/2024 Scanned Document [facility] [address] [place] [phone] Provider, Generic Social History Tobacco Use [...] Description 03/03/2025 1:00 PM EDT Clinical Support [facility] [place] [address] [facility], [place] [phone] Bruna Estrada Au.D [address] [place] [phone] documented as of this encounter Visit Diagnoses Not on filedocumented in this encounter Care Teams Printer Repair Technician Relationship Specialty Start Date End Date Pcp, No PCP - General General Medicine 11/07/24 documented as of this encounter
--- OUTSIDE RECORDS SUMMARY | 2025-03-01 13:24 | XMS_ITS | Clinical Summary ---
Author Organization [facility] Address [address] [place] [address] Care Team Providers Care Assembly Stock Supervisor Name Role Phone Kesha Childress DO Primary Care Provider [phone] Allergies No known active allergies Medications Medication [...] age to complete this topic Care Teams Assembly Stock Supervisor Relationship Specialty Start Date End Date Kesha Childress DO [address] [place] [address] PCP - General Family Medicine 11/16/22
[2025-03-01 14:08] VITALS: BMI 30.2
== END 2025-03-01 14:16 | disposition home or self-care (01) ==
LOC: HO.HMCFM 12:44
PROVIDERS: PCP Nurse Practitioner Family; Visit Provider Nurse Practitioner Family
DX: E55.9 Vitamin D deficiency, unspecified (principal); E53.8 Deficiency of other specified B group vitamins; D50.9 Iron deficiency anemia, unspecified; E66.9 Obesity, unspecified; M54.2 Cervicalgia; M62.838 Other muscle spasm

== ENCOUNTER → 2025-03-01 12:44 | Outpatient (BNVA) | payer BC, SELFPAY | PROVIDERS: PCP Nurse Practitioner Family; Visit Provider Nurse Practitioner Family | DX: M54.2 Cervicalgia (principal); E66.9 Obesity, unspecified; D50.9 Iron deficiency anemia, unspecified; E53.8 Deficiency of other specified B group vitamins; E55.9 Vitamin D deficiency, unspecified; M62.838 Other muscle spasm | CPT/HCPCS: 98966 ==

== ENCOUNTER 2025-06-11 14:23 | Outpatient (AMB) | payer BC, SELFPAY ==
--- NOTE | 2025-06-11 14:25 | MHC.PC.OV ---
Vital Signs 06/11/25 14:30 Height 5 ft 2 in Weight 158 lb BMI 28.9 BP 98/66 Blood Pressure Location Lt brachial Position Sitting Respiration 12 Pulse 54 Pulse Source Pulse Oximeter Temp 97.2 F Temp Source Oral Pulse Oximetry (%) 98 Oxygen Delivery Method Room Air Intake Visit Reasons: Ear Check Intake Note: Patient c/o left earache and worse when chewing x 2 days. Boat Dispatcher Required: No Allergies levaquin Allergy (Mild, Uncoded 06/11/25 14:45) throat sensation Medication List - Last Reconciled 06/11/25 by Desirae Solomon, SECURITIES DEALER- ascorbate calcium (vitamin C) 1 g PO Q6H betamethasone dipropionate 0.05% 1 appl topical cetirizine (Zyrtec) 10 mg PO DAILY PRN clotrimazole-betamethasone 1-0.05 % appl topical fluocinolone acetonide oil 0.01% drps otic (ears) tacrolimus 0.1% 1 appl topical BID Tobacco use date assessed: 06/11/25 Dental Screening Dental Screen Date: 06/11/25 Did you have a dental visit in the last 12 months?: Yes Did you have a dental problem in the last 6 months where you did not have access to dental care?: No Was dental information given to patient?: Patient has dentist HPI HPI Comments History of Present Illness Details 55 y/o F with seasonal allergies, family history of liver cancer, family history of lung cancer, iron-deficiency anemia, obesity, perimenopause, Vit d Def History of Present Illness The patient is a 55-year-old female presenting with left ear pain and blockage. - The patient has a history of chronically itchy ears for many years, which has been previously diagnosed as eczema. - She admits to using Q-tips to scratch her ears and believes this sometimes leads to an infection. - The current symptoms are in her left ear, - Symptoms began with a blocked feeling and progressed to pain, which was particularly severe yesterday, requiring Aleve and acetaminophen. - The pain was exacerbated by chewing and radiated down her neck and jaw area. - She notes her symptoms are slightly improved today. - She uses fluocinolone otic oil for the itching but finds it difficult to use during the day due to its oily consistency. Weight Management: - The patient has been participating in Weight Watchers since January and has lost 21 pounds. - Her starting weight was 177 pounds, and her current weight is 156 pounds. Preventative Care: - The patient requested an influenza vaccine during the visit. - A discussion was had regarding the pneumococcal vaccine (PCV 20) as a preventive measure for her recurrent ear infections. Past Medical History - Recurrent otitis media - Chronic pruritus of the ears, with a possible history of eczema - Deafness, left ear - Menopause - Adverse reaction to Levaquin Review of Systems - Ears: Reports left ear pain, a sensation of blockage described as feeling under water, and chronic bilateral ear pruritus. - HEENT: Denies nasal symptoms. - Neck: Reports neck tension and pain in the lower neck/jaw area associated with the ear pain. - Constitutional: Reports successful weight loss. Denies fever. Physical Exam General: Well developed, well nourished, in no acute distress. Appears stated age. Head: Normocephalic, atraumatic. Eyes: Pupils are equal, round and reactive to light and accommodation. Conjunctivae are clear. Ears: TM intact bilat, chronic scarring L, with some purulence noted 6 oclock position, EAC is pale w/ mild skin flaking bilat, TM on R clear, + post aurical adenopathy noted on L, no mastoid pain Lungs: Speaking in full sentences Medical Decision Making The patient is a 55-year-old female with a history of chronic ear pruritus and self-instrumentation who presents with symptoms of left ear pain, aural fullness, and pain on mastication. Physical exam revealed mucus collection at the bottom of the left tympanic membrane, consistent with early acute otitis media. The external auditory canal was clear, making otitis externa less likely. Given the findings and symptoms, an oral antibiotic is indicated. Azithromycin was selected as she has tolerated it previously and has not taken it in over a year, which minimizes the risk of bacterial resistance. Levaquin was noted as an allergy and avoided. The patient was given the option to start the antibiotic immediately or to observe symptoms for a short period. To manage the underlying chronic pruritus, the patient was advised to continue using fluocinolone oil drops. A modified application technique using a Q-tip to coat the canal was suggested for daytime use to improve compliance. Due to the recurrent nature of her ear infections, which are often caused by pneumococcal species, the PCV20 vaccine was strongly recommended to reduce the frequency of future episodes. The patient also received an influenza vaccine during the visit. Plan 1. Acute Otitis Media Of Left Ear - A prescription for Azithromycin will be sent to the pharmacy. - The patient has the option to start the antibiotic now or to wait and see if symptoms resolve without it. 2. Chronic Pruritus Of Ear - Continue using fluocinolone otic oil for itchiness. - For daytime application, advised to dip a Q-tip in the oil and coat the canal instead of filling it to avoid messiness. - Advised to avoid using hydrogen peroxide in the ears as it can cause excessive dryness. 3. Immunizations - Administered influenza vaccine in office today. - Strongly recommended the patient receive the Pneumococcal 20 (PCV20) vaccine to help reduce the frequency of ear infections. - Advised patient to get the PCV20 vaccine at a pharmacy and to verify insurance coverage beforehand. Patient Instructions - We are sending a prescription for an antibiotic (Azithromycin) to your pharmacy for your ear infection. - You can choose to start taking the antibiotic right away, or you can wait to see if the ear gets better on its own and only fill the prescription if it feels necessary. - For your itchy ears, continue using the fluocinolone oil drops. - To make it less messy during the day, you can dip a Q-tip in the oil and gently rub it inside your ear canal instead of filling the ear with drops. - Do not use hydrogen peroxide in your ears, as it will make the itching worse by drying them out. - You received a flu shot today in the office. - I strongly recommend you get the Pneumococcal 20 vaccine to help prevent future ear infections. You can get this at a pharmacy, but please check with your insurance plan first to ensure it's covered. Consent Patient was informed and verbally consented to the use of an ambient scribe for clinic note documentation during this visit. Total time spent caring for the patient today was 30 minutes. This includes time spent before the visit reviewing the chart, time spent during the visit, and time spent after the visit on documentation, reviewing laboratory results, diagnostic imaging, medications, performing a medically necessary evaluation, counseling on diagnoses, care coordination, ordering appropriate tests, ordering appropriate medications, review of tests performed by other providers, reporting test results with the patient, communication with other healthcare providers. [facility] Medical History No pertinent family history Family History Mother Anxiety Lung cancer Liver cancer Father Anxiety Other FH: mental illness Social History Housing: House Alcohol intake: current Comment: occasional Patient Tobacco Use Status: Never used Tobacco e-Cigarette/Vaping Use: Never Used Second Hand Smoke Exposure: No service: No Current occupational status: employed Current occupation: Teacher Current occupational exposures/hazards: No Cognitive needs: No Hearing needs: Yes (hearing impaired left ear) Vision needs: No Questionnaire Thrive Questionnaire Date Thrive assessed: 09/01/24 I am a: Patient What is your living situation today?: I have a steady place to live Within the past 12 months, did the food you bought not last and you didn't have the money to get more?: Never true Within the past 12 months, did you worry whether your food would run out before you got money to buy more?: Never true Do you have trouble paying for medicines?: No Do you have trouble getting transportation to medical appointments?: No Do you have trouble paying your heating and electricity bill?: No Do you have trouble taking care of your child, family member or friend?: No Do you have trouble with day-to-day activities such as bathing, preparing meals, shopping, managing finances, etc.?: No Are you currently unemployed and looking for a job?: No Are you interested in more education?: Yes Please select the resources that you would like help with: None Currently or been in a relationship where the following occur: No concerns reported THRIVE Score: 0 SAPPHIRE-7 AMB Questionnaire SAPPHIRE-7 Date SAPPHIRE - 7 assessed: 09/02/24 Source: Developed by Drs. Ray Peraza, Vanessa Silva, Dontae Joshua and colleagues, with an educational ehsan from [employer]. Physical exam (Primary Care) Vital Signs: Last Vital Signs Temp 97.2 F 06/11/25 14:30 Pulse 54 06/11/25 14:30 Resp 12 06/11/25 14:30 BP 98/66 06/11/25 14:30 Pulse Ox 98 06/11/25 14:30 Oxygen Delivery Method Room Air 06/11/25 14:30 BMI result Body Mass Index 28.9 Tobacco/Smoking Status: Tobacco use Status Tobacco use date assessed 06/11/25 06/11/25 14:31 Patient Tobacco Use Status Never used Tobacco 06/11/25 14:31 e-Cigarette/Vaping Use Never Used 06/11/25 14:31 Thrive Assessment: Date of Thrive Assessment Date Thrive assessed 09/01/24 06/11/25 14:31 Currently or been in a relationship where the following occur: No concerns reported Coding Level of Care Code Est Pt Level 4 (44176) Complex EM visit Add On G2211 Diagnoses Recurrent acute suppurative otitis media without spontaneous rupture of left tympanic membrane H66.005 Otitis media type: suppurative Laterality: left Recurrence: recurrent Spontaneous tympanic membrane rupture: without spontaneous rupture Eczema of both external ears H60.543 Influenza vaccination administered at current visit Z23 Assessment & Plan Assessment & Plan (1) Acute otitis media: Code(s): H66.90 - Otitis media, unspecified, unspecified ear Qualifiers: Otitis media type: suppurative Laterality: left Recurrence: recurrent Spontaneous tympanic membrane rupture: without spontaneous rupture Qualified Code(s): H66.005 - Acute suppurative otitis media without spontaneous rupture of ear drum, recurrent, left ear (2) Eczema of both external ears: Code(s): H60.543 - Acute eczematoid otitis externa, bilateral Category: Medical (3) Influenza vaccination administered at current visit: Onset Date: ~06/11/25 Code(s): Z23 - Encounter for immunization Category: Medical Plan . Orders: Orders Influenza [id number] Immunization Today Z23 - Encounter for immunization Medications: New Fluarix [id number] (PF) (flu vac ts (6mos up)-PF) 0.5 mL IM ONCE 0.5 mL 0RF NS Z23 - Encounter for immunization azithromycin For 250 mg dose pack: take 500 mg today (day 1), then 250 mg for 4 days (days 2-5) PO 6 tabs 0RF 5 days Patient Instructions: Patient Instructions - We are sending a prescription for an antibiotic (Azithromycin) to your pharmacy for your ear infection. - You can choose to start taking the antibiotic right away, or you can wait to see if the ear gets better on its own and only fill the prescription if it feels necessary. - For your itchy ears, continue using the fluocinolone oil drops. - To make it less messy during the day, you can dip a Q-tip in the oil and gently rub it inside your ear canal instead of filling the ear with drops. - Do not use hydrogen peroxide in your ears, as it will make the itching worse by drying them out. - You received a flu shot today in the office. - I strongly recommend you get the Pneumococcal 20 vaccine to help prevent future ear infections. You can get this at a pharmacy, but please check with your insurance plan first to ensure it's covered.
[2025-06-11 14:30] VITALS: BP 98/66; PULSE 54; RESP 12; TEMP 36.2; O2SAT 98; BMI 28.9
--- OUTSIDE RECORDS SUMMARY | 2025-06-11 15:03 | XMS_ITS | Clinical Summary ---
Author Organization [facility] Address [address] [place] [address] Care Team Providers Care Long Chain Quiller Tender Name Role Phone Alma Rosa Adair MD Unavailable Sena Washington MD Primary Care Provider [phone] Allergies No known active allergies Medications Medication Sig Dispensed Refills Start Date End Date Status Ascorbic Acid (vitamin C) 250 MG tabletIndications:Ane leroy, unspecified type Take 1 Tablet by mouth daily for 180 days. 90 Tablet 1 05/16/2023 Active Cetirizine HCl (ZYRTEC OR) Take by mouth at bedtime. 0 Active fluconazole (Diflucan) 150 MG tablet Take 150 mg once. May repeat dose after 2 to 3 days if symptoms persist. 2 Tablet 0 08/29/2023 Active tacrolimus (PROTOPIC) 0.1 % ointment 0 12/23/2023 Active ferrous sulfate 325 (65 Fe) MG tabletIndications:Ane leroy, unspecified type Take 1 Tablet by mouth daily. 90 Tablet 1 06/03/2024 Active Active Problems Problem Noted Date Deafness in left ear 01/26/2019 Migraine, menstrual Immunizations Name Administration Dates Next Due COVID-19 (Pfizer) 07/01/2021,11/17/2020,10/28/19 21 Influenza (> 6 Months) 08/09/2022,06/04/2013 Influenza Vaccine-preservati ve Free-quadrivalent 4 Years 08/09/2022,08/22/2021 Influenza Vaccine-quadrivalent 4 Years Plus 04/13 Tdap 01/26/2019 Family History Medical History Relation Name Comments CAD Father's side 2 CA Lung Maternal Grandmother smoking related Hypertension Mother Cancer, Other Uncle 2 smoking relate d Relation Name Status Comments Brother Alive healthy Father Alive healthy Father's side 1 Father's side 2 Maternal Grandfather stroke Maternal Grandmother lung ca Mother Alive htn/resolved Paternal Grandfather small p ox as child/heart problems Paternal Grandmother Alive healthy Uncle 1 Uncle 2 Social History Tobacco Use Types Packs/Day Years Used Date Smoking Tobacco: Never Smokeless Tobacco: Never Alcohol Use Standard Drinks/Week Comments Yes 0 (1 standard drink = 0.6 oz pur e alcohol) occasional wine Sex Assigned at Date Recorded Female 02/22/2022 5:00 PM E DT Job Start Date Occupation Industry Not on file Not on file Not on file Last Filed Vital Signs Vital Sign Reading Time Taken Comments Blood Pressure 108/62 12/26/2023 8:26 AM EDT Pulse 69 12/26/2023 8:26 AM EDT Temperature 36.6 C (97.9 F) 12/26/2023 8:26 AM EDT Respiratory Rate 16 08/22/2021 2:56 PM EST Oxygen Saturation 98% 10/26/2022 11:35 AM EDT Inhaled Oxygen Concentration - - Weight 80.7 kg (178 lb) 12/26/2023 8:26 AM EDT Height 162.6 cm (5' 4 ) 12/26/2023 8:26 AM EDT Body Mass Index 30.55 12/26/2023 8:26 AM EDT Plan of Treatment Health Maintenance Due Date Last Done Comments SHINGLES VACCINE (1 of 2) 2021 MAMMOGRAM 06/12/2023 06/12/2022 (Exte rnal Completion), 11/06/2018 (External Completion of test per patient (Patient reports normal results)), 02/14/2016 (External Completion) BASELINE HEALTH EXAM 40-64 08/09/202408/09, 08/22/2021, 08/22/2021, Additional history exists BMI CHECK/ADVISE 08/12/2024 05/16/2023, , 08/09/2022, Additional history exists Covid-19 Vaccine (2022- 4 season) 2025 07/01/2021, 11/17/2020, 10/27/2020 INFLUENZA (#1) 2025 08/09/2022, 07/13, 08/22/2021, Additional history exists CERVICAL CANCER SCREENING 05/14/20252021 (External Completion), 05/08/2018 (External Completion of test per patient (Patient reports normal results)), 01/24/2016 (External Completion) CHOLESTEROL SCREENING 08/09/2027 08/09/2022 , 01/26/2019, 03/07/2016, Additional history exists DTAP/TDAP/TD (3 - Td or Tdap) 01/26/2029 01/26/2019, 06/13/2011 COLON CANCER SCREENING 10/01/2033 10/01/2023 PNEUMOCOCCAL VACCINE FOR HIG H RISK PATIENTS (#1) 2036 HEPATITIS C SCREENING Completed 08/09/2022 Care Teams Long Chain Quiller Tender Relationship Specialty Start Date End Date Sena Baltazar MD [address] [place] [address] PCP - General Internal Medicine 02/25/24 Alma Rosa Adair MD Internal Medicine 03/13/17
--- OUTSIDE RECORDS SUMMARY | 2025-06-11 15:03 | XMS_ITS | Encounter Summary ---
Author Organization [facility] Address [address] [place] [address] Care Team Providers Care Fisher Diving Name Role Phone Alma Rosa Adair MD Primary Care Provider Un available Alma Rosa Adair MD Primary Care Provider Un available Alma Rosa Adair MD Unavailable UnavailKesha Rowe DO Primary Care Provider Unavaila Sena Horton MD Primary Care Provider [phone] Reason for Visit * Reason Onset Date Comments REFERRAL 04/03/2016 Encounter Details Date Type Department Care Team Description 04/03/2016 Telephone Eye Services-[address] [address] Lucas Malagon, OD REFERRAL Social History Tobacco Use Types Packs/Day Years Used Date Smoking Tobacco: Never Alcohol Use Standard Drinks/Week Comments Yes 0 (1 standard drink = 0.6 oz pur e alcohol) occasional wine Sex Assigned at Date Recorded Female 02/22/2022 5:00 PM E DT Job Start Date Occupation Industry Not on file Not on file Not on file documented as of this encounter Miscellaneous Notes * Telephone Encounter - Robert Rosenbaum PA-C - 04/04/2016 7:57 AM EDT Thanks for FYI * Telephone Encounter - Namita Ariel - 04/03/2016 4:01 PM EDT This is just an FYI: This patient was referred to the Eye Department for routine eye exam after being seen on 03/08/16. Since then the patient has failed to respond to our phone calls and an unable to reach letter that was sent to the patient's home. Therefore the patient will be removed from our report. documented in this encounter Plan of Treatment Not on file documented as of this encounter Visit Diagnoses Not on filedocumented in this encounter Care Teams Fisher Diving Relationship Specialty Start Date End Date Alma Rosa Adair MD PCP - General Internal Medicine 07/05/14 Alma Rosa Adair MD PCP - General 03/13/17 04/30/22 Kesha Childress DO PCP - General Internal Medicine 05/01/22 02/24/24 Sena Baltazar MD [address] [place] [id number] PCP - General Internal Medicine 02/25/24 Alma Rosa Adair MD Internal Medicine 03/13/17 documented as of this encounter
--- OUTSIDE RECORDS SUMMARY | 2025-06-11 15:03 | XMS_ITS | Encounter Summary ---
Author Organization [facility] Address [address] [place] [address] Care Team Providers Care Bundle Breaker Name Role Phone Alma Rosa Adair MD Primary Care Provider Un available Alma Rosa Adair MD Primary Care Provider Un available Alma Rosa Adair MD Unavailable UnavailKesha Rowe DO Primary Care Provider UnavailSena Kaiser MD Primary Care Provider [phone] Reason for Visit * Reason Onset Date Comments REFERRAL 07/10/2016 Encounter Details Date Type Department Care Team Description 07/10/2016 Telephone Physiatry - [address] [address] Carlos Domínguez DO REFERRAL Social History Tobacco Use Types Packs/Day [...] Telephone Encounter - Robert Rosenbaum PA-C - 07/10/2016 12:48 PM EST Thanks for FYI * Telephone Encounter - Trish Echols - 07/10/2016 8:34 AM EST Patient was referred to Physiatry for extremity pain and neuropathy. Patient no showed appointment with on 07/02/16. Tried to contact patient several times to reschedule appointment with kareen. Patient will be taken off of referrals report. FYI documented in this encounter Plan of Treatment Not on file documented as of this encounter Visit Diagnoses Not on filedocumented in this encounter Care Teams Bundle Breaker Relationship Specialty Start Date End Date Alma Rosa Adair MD PCP - General Internal Medicine 07/05/14 Alma Rosa Adair MD PCP - General 03/13/17 04/30/22 Kesha Childress DO PCP - General Internal Medicine 05/01/22 02/24/24 Sena Baltazar MD [address] [place] [id number] PCP - General Internal Medicine 02/25/24 Alma Rosa Adair MD Internal Medicine 03/13/17 documented as of this encounter
--- OUTSIDE RECORDS SUMMARY | 2025-06-11 15:03 | XMS_ITS | Clinical Summary ---
Author Organization [facility] Address [address] [place] [address] Care Team Providers Care Mobile Qa Tester Name Role Phone Kesha Childress DO Primary Care Provider [phone] Allergies No known active allergies Medications Medication [...] of 2) 2021 COVID-19 Vaccine ( season) 2025 07/01/2021, 11/17/2020, 10/27/2020 Influenza Vaccine (#1) 2025 2, 08/09/2022, 08/22/2021, Additional history exists DTap / Tdap / Td (2 - Td or Tdap) 01/26/2029 01/26/2019 Pneumococcal Vaccine Aged Out No long er eligible based on patient's age to complete this topic RSV Ped < 20 months Aged Out No longe r eligible based on patient's age to complete this topic Care Teams Mobile Qa Tester Relationship Specialty Start Date End Date Kesha Childress DO [address] [place] [address] PCP - General Family Medicine 11/16/22
--- OUTSIDE RECORDS SUMMARY | 2025-06-11 15:03 | XMS_ITS | Encounter Summary ---
Author Organization [facility] Address [address] [place] [address] Care Team Providers Care Commercial Credit Head Name Role Phone Pcp, No Primary Care Provider Unavailabl e Encounter Details Date Type Department Care Team (Late st Contact Info) Description 11/07/2024 Scanned Document [address] [phone] Provider, Generic Social History Tobacco [...] on filedocumented in this encounter Care Teams Commercial Credit Head Relationship Specialty Start Date End Date Pcp, No PCP - General General Medicine 11/07/24 documented as of this encounter
--- OUTSIDE RECORDS SUMMARY | 2025-06-11 15:03 | XMS_ITS | Encounter Summary ---
Author Organization [facility] Address [address] [place] [address] Care Team Providers Care Chemical Detection Expert Name Role Phone Pcp, No Primary Care Provider Unavailabl e Encounter Details Date Type Department Care Team (Late st Contact Info) Description 11/07/2024 Scanned Document [address] [phone] Provider, Generic Social History Tobacco [...] on filedocumented in this encounter Care Teams Chemical Detection Expert Relationship Specialty Start Date End Date Pcp, No PCP - General General Medicine 11/07/24 documented as of this encounter
--- OUTSIDE RECORDS SUMMARY | 2025-06-11 15:03 | XMS_ITS | Encounter Summary ---
Author Organization [facility] Address [address] [place] [address] Care Team Providers Care Contract Recruiter Name Role Phone Pcp, No Primary Care Provider Unavailabl e Encounter Details Date Type Department Care Team (Late st Contact Info) Description 01/10/2025 Scanned Document [address] [place] [id number] Provider, Generic Social History Tobacco Use [...] on filedocumented in this encounter Care Teams Contract Recruiter Relationship Specialty Start Date End Date Pcp, No PCP - General General Medicine 11/07/24 documented as of this encounter
--- OUTSIDE RECORDS SUMMARY | 2025-06-11 15:03 | XMS_ITS | Clinical Summary ---
Author Organization [facility] Address [address] [place] [address] Care Team Providers Care Yard Loader Operator Name Role Phone Pcp, No Primary Care Provider Unavailabl e Allergies Active Allergy Reactions Criticality Noted Date Comments Fluconazole Anaphylaxis High 01/10/2025 Medications ferrous sulfate 325 (65 FE) MG tablet Take by mouth daily. Take 2 hours before or 4 hours after acid reducers. Active Ascorbic Acid (vitamin C) 100 MG tablet Take 100 mg by mouth daily. Active Active Problems Problem Noted Date Diagnosed Date Migraine, menstrual 09/17/2024 Deafness in left ear 01/26/2019 Immunizations Immunization Administration Dates Next Due Covid-19 MRNA Vaccine [...] Sign Reading Time Taken Comments Blood Pressure 102/63 01/10/2025 9:12 AM EDT Pulse 82 01/10/2025 9:12 AM EDT Temperature 36.2 C (97.2 F) 01/10/2025 9:12 AM EDT Respiratory Rate 18 11/07/2024 2:05 PM EDT Oxygen Saturation 97% 01/10/2025 9:12 AM EDT Inhaled Oxygen Concentration - - Weight 81.6 kg (180 lb) 01/10/2025 9:12 AM EDT Height 162.6 cm (5' 4 ) 01/10/2025 9:12 AM EDT Body Mass Index 30.9 01/10/2025 9:12 AM EDT Plan of Treatment Health Maintenance Due Date Last Done Comments Hepatitis C Virus Screening 1971 HIV Screening 1984 Hepatitis B Vaccines (1 of 3 - 19+ 3-dose series) 1990 Pap Smear (Ages 21-65) 1992 Mammogram 2011 Colonoscopy 2016 Pneumococcal Vaccines 50+ (1 of 1 - PCV) 2021 Zoster (Shingles) Vaccine (1 of 2) 2021 Influenza Vaccine 03/12/2025 08/09/2022, , 08/22/2021, Additional history exists COVID-19 Vaccine (2024-2 6 season) 2025 07/01/2021, 11/17/2020, 10/27/2020 DTaP/Tdap/Td Vaccines (3 - T d or Tdap) 01/26/2029 01/26/2019, 06/13/2011 RSV Vaccine 50 years and old er and Patients (1 - 1-dose 75+ series) 2046 Insurance [facility] OUT OF STATE - HMO [facility] HMO Care Teams Yard Loader Operator Relationship Specialty Start Date End Date Pcp, No PCP - General General Medicine 11/07/24
--- OUTSIDE RECORDS SUMMARY | 2025-06-11 15:03 | XMS_ITS | Encounter Summary ---
Author Organization [facility] Address [address] [place] [address] Care Team Providers Care Mail Opener Name Role Phone Alma Rosa Adair MD Unavailable Kesha Garcia DO Primary Care Provider UnavailSena Kaiser MD Primary Care Provider [phone] Encounter Details Date Type Department Care Team Description 08/20/2023 Pt. Non Urgent Medical Question Internal Medicine - [address] [place] [address] Keely Dover, RD, LDN [address] [address] Social History Tobacco Use Types Packs/Day Years [...] on filedocumented in this encounter Care Teams Mail Opener Relationship Specialty Start Date End Date Kesha Childress DO PCP - General Internal Medicine 05/01/22 02/24/24 Sena Baltazar MD [address] [place] [address] PCP - General Internal Medicine 02/25/24 Alma Rosa Adair MD Internal Medicine 03/13/17 documented as of this encounter
--- OUTSIDE RECORDS SUMMARY | 2025-06-11 15:03 | XMS_ITS | Encounter Summary ---
Author Organization [facility] Address [address] [place] [address] Care Team Providers Care Delinquent Tax Collection Assistant Name Role Phone Alma Rosa Adair MD Unavailable UnavailKesha Rowe DO Primary Care Provider UnavailSena Kaiser MD Primary Care Provider [phone] Encounter Details Date Type Department Care Team Description 10/22/2023 Pt. Non Urgent Medic al Question Adult Medicine - [address] [address] Kate Ortiz PA-C Social History Tobacco Use Types Packs/Day Years [...] encounter Miscellaneous Notes * Telephone Encounter - Jody Mead M.A. - 10/22/2023 10:42 AM EDTFrom: Marcella Godfrey To: Juancarlos Ortiz Sent: 10/22/2023 9:32 AM EDT Subject: Audiogram I just had an audiogram completed at [facility]. They found significant loss from the last visit. They wanted me to get a referral to ear nose and throat . I need a referral number and amount of visits I am able to have from you in order to move forward. If I can have that number directly then I can make the appointment. They will not give me a hearing aide until I go to eat nose and throat. Thank you for your help! I know how long out they schedule so I want to get on this. documented in this encounter Plan of Treatment Not on file documented as of this encounter Visit Diagnoses Not on filedocumented in this encounter Care Teams Delinquent Tax Collection Assistant Relationship Specialty Start Date End Date Kesha Childress DO PCP - General Internal Medicine 05/01/22 02/24/24 Sena Baltazar MD [address] [place] [address] PCP - General Internal Medicine 02/25/24 Alma Rosa Adair MD Internal Medicine 03/13/17 documented as of this encounter
--- OUTSIDE RECORDS SUMMARY | 2025-06-11 15:03 | XMS_ITS | Encounter Summary ---
Author Organization [facility] Address [address] [place] [address] Care Team Providers Care Corporate Quality Engineer Name Role Phone Alma Rosa Adair MD Unavailable Kesha Garcia DO Primary Care Provider UnavailSena Kaiser MD Primary Care Provider [phone] Encounter Details Date Type Department Care Team Description 10/07/2023 Orders Only Medical Records [address] [place] [address] Ramses Foster MD [address] [place] [address] [place] [address] Social History Tobacco Use Types Packs/Day Years [...] on file documented as of this encounter Procedures Procedure Name Priority Date/Time Associated Diagnosis Comments OUTSIDE COLONOSCOPY Routine 10/01/2023 documented in this encounter Results * OUTSIDE COLONOSCOPY (10/01/2023) Ramses Foster MD RADIOLOGY documented in this encounter Visit Diagnoses Not on filedocumented in this encounter Care Teams Corporate Quality Engineer Relationship Specialty Start Date End Date Kesha Childress DO PCP - General Internal Medicine 05/01/22 02/24/24 Sena Baltazar MD [address] [place] [address] PCP - General Internal Medicine 02/25/24 Alma Rosa Adair MD Internal Medicine 03/13/17 documented as of this encounter
--- OUTSIDE RECORDS SUMMARY | 2025-06-11 15:03 | XMS_ITS | Encounter Summary ---
Author Organization [facility] Address [address] [place] [address] Care Team Providers Care Surgical Tech Name Role Phone Alma Rosa Adair MD Unavailable UnavailKesha Rowe DO Primary Care Provider UnavailSena Kaiser MD Primary Care Provider [phone] Reason for Referral * EXTERNAL (Routine) - Authorized/Booked Specialty Diagnoses / Procedures Referred By Contact Referred To Contact Otolaryngology / EarNoseThroat Procedures REFERRAL TO EAR, NOSE & THROAT Kate Ortiz PA-C [address] [place] [address] External Ent Referral ID Status Reason Start Date Expiration Date V isits Requested Visits Authorized [id number] Authorized/B ooked 02/19/2024 1 1 Encounter Details Date Type Department Care Team Description 02/17/2024 Pt. Non Urgent Medic al Question Adult Medicine - [address] [address] Kate Ortiz PA-C Social History Tobacco Use [...] encounter Miscellaneous Notes * Telephone Encounter - Angela Burnett M.A. - 02/17/2024 2:32 PM EDTFrom: Marcella Godfrey To: Juancarlos Ortiz Sent: 02/17/2024 2:24 PM EDT Subject: Referral I had asked a while back for an ear nose and throat referral. I went to have my hearing tested and they said I needed to follow up with ear nose and throat before I could get a hearing aide. Could someone please get back to me as soon as possible to set up an appointment. documented in this encounter Plan of Treatment Not on file documented as of this encounter Visit Diagnoses Not on filedocumented in this encounter Care Teams Surgical Tech Relationship Specialty Start Date End Date Kesha Childress DO PCP - General Internal Medicine 05/01/22 02/24/24 Sena Baltazar MD [address] [place] [address] PCP - General Internal Medicine 02/25/24 Alma Rosa Adair MD Internal Medicine 03/13/17 documented as of this encounter
--- OUTSIDE RECORDS SUMMARY | 2025-06-11 15:03 | XMS_ITS | Encounter Summary ---
Author Organization [facility] Address [address] [place] [address] Care Team Providers Care Air Boatswain Name Role Phone Alma Rosa Adair MD Unavailable Kesha Garcia DO Primary Care Provider UnavailSena Kaiser MD Primary Care Provider [phone] Reason for Visit * Reason Onset Date Comments Medication 09/17/2023 Encounter Details Date Type Department Care Team Description 09/17/2023 Refill Gastroenterology - [place] [address] [facility] [address] [place] [phone] Ramses Foster MD [address] [facility] [address] [place] [address] Medication Social History Tobacco Use Types Packs/Day Years [...] on filedocumented in this encounter Care Teams Air Boatswain Relationship Specialty Start Date End Date Kesha Childress DO PCP - General Internal Medicine 05/01/22 02/24/24 Sena Baltazar MD [address] [place] [address] PCP - General Internal Medicine 02/25/24 Alma Rosa Adair MD Internal Medicine 03/13/17 documented as of this encounter
--- OUTSIDE RECORDS SUMMARY | 2025-06-11 15:03 | XMS_ITS | Encounter Summary ---
Author Organization [facility] Address [address] [place] [address] Care Team Providers Care Solder Sprayer Name Role Phone Alma Rosa Adair MD Unavailable Kesha Garcia DO Primary Care Provider Sena Washington MD Primary Care Provider [phone] Encounter Details Date Type Department Care Team Description 02/18/2024 Pt. Non Urgent Medic al Question Adult Medicine - [address] [address] Kesha Childress DO Social History Tobacco Use Types Packs/Day Years [...] encounter Miscellaneous Notes * Telephone Encounter - Zarina Carter L.P.N. - 02/19/2024 7:58 AM EDT From: Marcella Godfrey To: Juancarlos Childress Sent: 02/18/2024 9:16 PM EDT Subject: Need to see a ear nose and throat dr I had asked a while back for [...] on filedocumented in this encounter Care Teams Solder Sprayer Relationship Specialty Start Date End Date Kesha Childress DO PCP - General Internal Medicine 05/01/22 02/24/24 Sena Baltazar MD [address] [place] [address] PCP - General Internal Medicine 02/25/24 Alma Rosa Adair MD Internal Medicine 03/13/17 documented as of this encounter
--- OUTSIDE RECORDS SUMMARY | 2025-06-11 15:04 | XMS_ITS | Encounter Summary ---
Author Organization [facility] Address [address] [place] [address] Care Team Providers Care Lock Installer Name Role Phone Alma Rosa Adair MD Unavailable Kesha Garcia DO Primary Care Provider Sena Washington MD Primary Care Provider [phone] Reason for Visit * Reason Onset Date Comments Patient Outreach 06/13/2022 [facility] Encounter Details Date Type Department Care Team Description 06/13/2022 Telephone Adult Medicine [address] [address] Abigail Galeas Patient Outreach ([facility]) Social History Tobacco Use Types Packs/Day Years [...] encounter Miscellaneous Notes * Telephone Encounter - Anayeli Answer - 06/13/2022 11:41 AM EDT 1st OB call to contact Pt to schedule colonoscopy. There was no answer, so I left a HIPAA compliantmessage with my contact details on the VM. documented in this encounter Plan of Treatment Not on file documented as of this encounter Visit Diagnoses Not on filedocumented in this encounter Care Teams Lock Installer Relationship Specialty Start Date End Date Kesha Childress DO PCP - General Internal Medicine 05/01/22 02/24/24 Sena Baltazar MD [address] [place] [address] PCP - General Internal Medicine 02/25/24 Alma Rosa Adair MD Internal Medicine 03/13/17 documented as of this encounter
--- OUTSIDE RECORDS SUMMARY | 2025-06-11 15:04 | XMS_ITS | Encounter Summary ---
Author Organization [facility] Address [address] [place] [address] Care Team Providers Care Ophthalmic Nurse Name Role Phone Pcp, No Primary Care Provider Unavailabl e Encounter Details Date Type Department Care Team (Late st Contact Info) Description 09/21/2024 Scanned Document [facility] [address], [place] [phone] Bruna Estrada Au.D [address] [place] [address] Social History Tobacco Use Types Packs/Day Years [...] on filedocumented in this encounter Care Teams Ophthalmic Nurse Relationship Specialty Start Date End Date Pcp, Jayla PCP - General General Medicine 11/07/24 documented as of this encounter
--- OUTSIDE RECORDS SUMMARY | 2025-06-11 15:04 | XMS_ITS | Encounter Summary ---
Author Organization [facility] Address [address] [place] [address] Care Team Providers Care Cut Off Operator Scorer Name Role Phone Alma Rosa Adair MD Unavailable UnavailKesha Rowe DO Primary Care Provider UnavailSena Kaiser MD Primary Care Provider [phone] Encounter Details Date Type Department Care Team Description 12/25/2022 Cyber Intel Planner Report Medical Records [address] [place] [address] Socorro France PA-C Social History Tobacco Use Types Packs/Day [...] on filedocumented in this encounter Care Teams Cut Off Operator Scorer Relationship Specialty Start Date End Date Kesha Childress DO PCP - General Internal Medicine 05/01/22 02/24/24 Sena Baltazar MD [address] [place] [address] PCP - General Internal Medicine 02/25/24 Alma Rosa Adair MD Internal Medicine 03/13/17 documented as of this encounter
--- OUTSIDE RECORDS SUMMARY | 2025-06-11 15:04 | XMS_ITS | Encounter Summary ---
Author Organization [facility] Address [address] [place] [address] Care Team Providers Care Drapery Counselor Name Role Phone Alma Rosa Adair MD Unavailable UnavailKesha Rowe DO Primary Care Provider Unavaila Sena Horton MD Primary Care Provider [phone] Reason for Referral * Non RENAY (Priority) - Authorized/Booked Specialty Diagnoses / Procedures Referred By Contnuria t Referred To Contact Gastroenterology Procedures REFERRAL TO GASTROENTEROLOGY Kate Ortiz PA-C [address] [place] [address] Kofi Prasad MD [address] [place] [address] Referral ID Status Reason Start Date Expiration Date V isits Requested Visits Authorized [id number] Authorized/ Booked 01/30/2023 01/30/2024 12 12 Encounter Details Date Type Department Care Team Description 01/30/2023 Pt. Non Urgent Medic al Question Adult Medicine - [place] [address] [place] [address] Kate Ortiz PA-C Social History Tobacco Use [...] encounter Miscellaneous Notes * Telephone Encounter - Eneida Allen M.A. - 01/30/2023 9:45 AM EDTFrom: Marcella Godfrey To: Juancarlos Ortiz Sent: 01/30/2023 9:17 AM EDT Subject: Oncology I went to the oncology appointment at [facility] and they wanted to add an endoscopy to my colonoscopy. The GI said I needed a referral from you to have a consultation and then add it. Not sure if you cansend that over to [facility] ? Thank you Marcella documented in this encounter Plan of Treatment Not on file documented as of this encounter Visit Diagnoses Not on filedocumented in this encounter Care Teams Drapery Counselor Relationship Specialty Start Date End Date Kesha Childress DO PCP - General Internal Medicine 05/01/22 02/24/24 Sena Baltazar MD [address] [place] [address] PCP - General Internal Medicine 02/25/24 Alma Rosa Adair MD Internal Medicine 03/13/17 documented as of this encounter
--- OUTSIDE RECORDS SUMMARY | 2025-06-11 15:04 | XMS_ITS | Encounter Summary ---
Author Organization [facility] Address [address] [place] [address] Care Team Providers Care Screw Driver Operator Name Role Phone Alma Rosa Adair MD Unavailable Unavaila Kesha Lee DO Primary Care Provider UnavailSena Kaiser MD Primary Care Provider [phone] Encounter Details Date Type Department Care Team Description 10/04/2022 Pt. Referral Request [facility] MyChart [address] [place] [address] Md Butch Social History Tobacco Use Types Packs/Day Years [...] on filedocumented in this encounter Care Teams Screw Driver Operator Relationship Specialty Start Date End Date Kesha hCildress DO PCP - General Internal Medicine 05/01/22 02/24/24 Sena Baltazar MD [address] [place] [address] PCP - General Internal Medicine 02/25/24 Alma Rosa Adair MD Internal Medicine 03/13/17 documented as of this encounter
--- OUTSIDE RECORDS SUMMARY | 2025-06-11 15:04 | XMS_ITS | Encounter Summary ---
Author Organization [facility] Address [address] [place] [address] Care Team Providers Care Big Machine Consultant Name Role Phone Pcp, No Primary Care Provider Unavailabl e Encounter Details Date Type Department Care Team (Late st Contact Info) Description 09/21/2024 Scanned Document [facility] [address], [place] [phone] Bruna Estrada Au.D [address] [place] [address] Social History Tobacco Use Types Packs/Day Years [...] on filedocumented in this encounter Care Teams Big Machine Consultant Relationship Specialty Start Date End Date Pcp, Jayla PCP - General General Medicine 11/07/24 documented as of this encounter
--- OUTSIDE RECORDS SUMMARY | 2025-06-11 15:04 | XMS_ITS | Encounter Summary ---
Author Organization [facility] Address [address] [place] [address] Care Team Providers Care Senior Group Manager Name Role Phone Alma Rosa Adair MD Primary Care Provider Un available Alma Rosa Adair MD Unavailable UnavailKesha Rowe DO Primary Care Provider UnavailSena Kaiser MD Primary Care Provider [phone] Reason for Visit * Reason Onset Date Comments Rash 03/21/2021 inner thigh Encounter Details Date Type Department Care Team Description 03/21/2021 Telephone Medicine/Pediatrics - [address] [phone] Alma Rosa Adair MD Rash (inner thigh) Social History Tobacco Use Types Packs/Day Years [...] encounter Miscellaneous Notes * Telephone Encounter - Gayle Padilla Rn - 03/23/2021 4:00 PM EDT Unable to reach pt. Will send a my chart message If pt calls please verify phone # * Telephone Encounter - Kaia Matamoros L.P.N. - 03/21/2021 3:35 PM EDT Tried again can not be completed * Telephone Encounter - Kaia Matamoros L.P.N. - 03/21/2021 1:57 PM EDT # can not be completed I tried 3 times * Telephone Encounter - Jenniffer Orta - 03/21/2021 1:53 PM EDT Symptoms patient is presenting: rash inner thighs, closer to vaginal area itching and spreading For ALL patients calling to schedule any appointment (routine, sick visit, follow up, consult, etc.) in the outpatient setting please ask the following questions: ?? Do you have fever of higher than 101, sore throat with difficulty swallowing or severe shortnessof breath? NO ?? If YES to any of these above symptoms, send a message to triage and do not book. Red dot. If no, an audio or video visit should be booked. ?? Have you had close contact with someone with Coronavirus in the last 14 days? NO ?? Have you traveled abroad? NO ?? Have you traveled recently to another state outside of [place], [place], [place], [place], [place], [place], [place]? NO o If yes, did you quarantine for 14 days or have a negative covid test? NO If yes to any of the above, patient is not to be scheduled in office until after 14 day quarantine or negative covid test. If pain or injury related was it due to an accident at work or from a motor vehicle accident? NO If yes, gather 3rd green party insurance information Date of accident/Injury: How long has patient had these symptoms?: on and off 1 month PCP: Alma Rosa Adair Payor: MELANIE/O FFS / Plan: HMO $20 Instabeat [id number] / Product Type: HMO [id number] documented in this encounter Plan of Treatment Not on file documented as of this encounter Visit Diagnoses Not on filedocumented in this encounter Care Teams Senior Group Manager Relationship Specialty Start Date End Date Alma Rosa Adair MD PCP - General 03/13/17 04/30/22 Kesha Childress DO PCP - General Internal Medicine 05/01/22 02/24/24 Sena Baltazar MD [address] [place] [address] PCP - General Internal Medicine 02/25/24 Alma Rosa Adair MD Internal Medicine 03/13/17 documented as of this encounter
== END 2025-06-11 15:03 | disposition home or self-care (01) ==
LOC: HO.HMCFM 14:24
PROVIDERS: PCP Nurse Practitioner Family; Visit Provider Nurse Practitioner Family
DX: H66.005 Acute suppurative otitis media without spontaneous rupture of ear drum, recurrent, left ear (principal); H60.543 Acute eczematoid otitis externa, bilateral; Z23 Encounter for immunization

== ENCOUNTER → 2025-06-11 14:23 | Outpatient (BNVA) | payer BC, SELFPAY | PROVIDERS: PCP Nurse Practitioner Family; Visit Provider Nurse Practitioner Family | DX: H66.005 Acute suppurative otitis media without spontaneous rupture of ear drum, recurrent, left ear (principal); H60.543 Acute eczematoid otitis externa, bilateral; Z23 Encounter for immunization | CPT/HCPCS: 90471; 90656 ==